=== PATIENT | female | born 1965 | race Caucasian/White ===

== ENCOUNTER → 2020-07-23 07:10 | Outpatient (CLI) | payer OTHER, SELFPAY ==
--- NOTE | 2020-07-23 | DI.MRI.S_ITS ---
PROCEDURE: MR LUMBAR SPINE WO CON INDICATIONS: Radiculopathy, lumbar region TECHNIQUE: Noncontrast sagittal T1 spin echo and T2 fast echo, sagittal STIR, axial T1 and T2 fast spin echo through the lumbar spine. In cases with scoliosis, additional coronal T2 fast spin echo may be performed. COMPARISON: [facility] [place], [place], XR LUMBAR SPINE WITH OLBIQUES PLUS FLEXION EXTENSION, 07/17/2020, 9:07. FINDINGS: Image quality: Excellent. Alignment and Curvature: 5 lumbar type vertebral bodies are present by plain film. Alignment is normal. Bone Marrow: Marrow is of normal overall signal. No acute vertebral body compression fractures. Mild reactive signal within the endplates adjacent to the L4-L5 intervertebral disc. Left L4-L5 hemilaminotomy. Spinal Cord: Conus medullaris terminates at the lower L1 level. Visualized cord demonstrates normal signal and size. Paraspinous Soft Tissues: No paravertebral masses. Moderate edema within the posterior subcutaneous fat. L1-L2: Normal appearance. L2-L3: Mild disc desiccation and diffuse disc bulge. Mild facet and ligamentum flavum hypertrophy. Mild epidural lipomatosis. Mild canal stenosis. No foraminal stenosis. L3-L4: Mild disc desiccation and diffuse disc bulge with superimposed small broad-based right posterolateral protrusion. Mild facet and ligamentum flavum hypertrophy. Mild epidural lipomatosis. Mild canal stenosis. Moderate right and mild left foraminal stenosis. L4-L5: Moderate disc desiccation. Mild disc height loss. Mild diffuse disc bulge with superimposed broad-based left posterolateral protrusion. Mild bilateral facet hypertrophy. No significant canal stenosis. Severe left and mild right foraminal stenosis. Left L4 nerve root compression. L5-S1: Mild bilateral facet hypertrophy. No significant canal, or foraminal stenosis. IMPRESSION: 1. Postsurgical sequelae at L4-L5 with no significant canal stenosis at that level. 2. Multilevel degenerative disc and facet disease, as well as ligamentum flavum hypertrophy and epidural lipomatosis. 3. Mild multilevel canal stenosis. 4. Multilevel foraminal stenoses, worst at L4-L5 on the left where there is associated intraforaminal nerve root compression. Recommend correlation with clinical symptoms to ascertain relevance of this finding. Dictated by: Miri Packer M.D. on 07/23/2020 at 8:34 Approved by: Miri Packer M.D. on 07/23/2020 at 8:37
== END ==
PROVIDERS: Referring Provider Physical Medicine & Rehabilitation; Visit Provider Physical Medicine & Rehabilitation
DX: M51.16 Intervertebral disc disorders with radiculopathy, lumbar region (principal); M48.061 Spinal stenosis, lumbar region without neurogenic claudication; E88.2 Lipomatosis, not elsewhere classified
CPT/HCPCS: 72148

== ENCOUNTER → 2020-09-03 07:32 | Outpatient (CLI) | payer OTHER, SELFPAY ==
[2020-09-03 08:46] LABS: Add Manual Diff / Slide Review NO; Basophils Absolute Auto 100 /uL (0-100); Basophils Percent Auto 0.9 % (0-2); Eosinophils Absolute Auto 200 /uL (0-450); Hematocrit 42.1 % (36-46); Lymphocytes Absolute Auto 3300 /uL (1100-4500); Lymphocytes Percent Auto 41.4 % (25-40); Mean Corpuscular HGB Conc 33.3 % (30-36); Mean Corpuscular Hemoglobin 28.2 PG (26-34); Mean Corpuscular Volume 84.6 fL (80-100); Monocytes Absolute Auto 600 /uL (0-900); Monocytes Percent Auto 7.9 % (3-14); Neutrophils Absolute Auto 3800 /uL (1500-7000); Neutrophils Percent Auto 47.8 % (50-75); Platelet Count 337 X10^3/uL (150-400); Red Blood Cell Count 4.97 X10^6/uL (4.0-5.2); Red Cell Distribution Width 13.8 % (11.6-14.8)
== END ==
PROVIDERS: Referring Provider Orthopaedic Surgery; Visit Provider Orthopaedic Surgery
DX: Z01.812 Encounter for preprocedural laboratory examination (principal)
CPT/HCPCS: 36415; 85025

== ENCOUNTER → 2020-09-08 08:18 | Outpatient (CLI) | payer OTHER, SELFPAY ==
[2020-09-08 09:30] LABS: COVID19 -Nasal RAPID Negative (Negative)
== END ==
PROVIDERS: Referring Provider Orthopaedic Surgery; Visit Provider Physician Assistant
DX: Z11.59 Encounter for screening for other viral diseases (principal)
CPT/HCPCS: 87635

== ENCOUNTER 2020-09-12 14:59 | Observation (INO) | payer OTHER, SELFPAY ==
[2020-09-05 07:34] VITALS: BMI 39.1
[2020-09-11] VITALS (15 sets, daily range): BP systolic 105–141; BP diastolic 48–83; PULSE 69–97; RESP 11–25; TEMP 35.9–36.8; O2SAT 92–99; BMI 39.9
--- NOTE | 2020-09-11 | DI.RAD.S_ITS ---
PROCEDURE: XR LUMBAR SPINE 2-3V INDICATIONS: L4-5 TLIF TECHNIQUE: 2 views of the lumbar spine were acquired. COMPARISON: [facility] [place], XR LUMBAR SPINE WITH OLBIQUES PLUS FLEXION EXTENSION, 07/17/2020, 9:07. FINDINGS: Bones: Postsurgical changes compatible with L4-L5 TLIF noted. Orthopedic hardware is intact. Soft tissues: Overlying bowel gas pattern is normal. No suspicious soft tissue calcifications. IMPRESSION: Expected postsurgical change for L4-L5 TLIF. Dictated by: Elyssa Wick MD, PhD on 09/11/2020 at 11:37 Approved by: Elyssa Wick MD, PhD on 09/11/2020 at 11:38
[2020-09-11] MEDS: LACTATED RINGERS 1,000 ML 42 ML IV ×2 (07:06→08:56)
--- NOTE | 2020-09-11 07:31 | PM.PREOP ---
Pre-operative Note COVID-19 COVID-19 status: Negative Result date/Date tested (Pos, Neg/Pending): 09/08/20 Interval Note History & Physical reviewed/Exam performed by Physician: Yes Changes to H&P: No
[2020-09-11] MEDS: SCOPOLAMINE 1 PATCH TOP (07:42)
[2020-09-11] MEDS: APREPITANT 40 MG CAPSULE PO (07:42)
[2020-09-11] MEDS: CLINDAMYCIN 900 MG/50 ML PIGGYBACK 50 MG IV (07:52)
[2020-09-11] MEDS: THROMBIN (RECOMBINANT) 5,000 UNIT VIAL 5000 UNIT TOP (08:37)
[2020-09-11] MEDS: SODIUM CHLORIDE 0.9% 1,000 ML, GENTAMICIN 80 MG IRR (08:37)
[2020-09-11] MEDS: VANCOMYCIN 1,000 MG VIAL 1000 MG TOP (08:38)
[2020-09-11] MEDS: BUPIVACAINE 0.25% (PF) 8 ML, fentaNYL 100 MCG INJ (08:39)
--- NOTE | 2020-09-11 08:53 | SUR.OPER ---
Prone on spine table, head in foam head support, padded chest and pelvic supports, gel pad at knees, lower legs supported by pillows; nipples, genitalia and toes free of pressure, arms secured on foam padded arm boards at <90 degrees abduction. Tape over blanket at thigh secured to table.
--- NOTE | 2020-09-11 10:34 | P.OP_ITS ---
Operative Date/Time/Diagnoses Date of procedure: 09/11/20 Time of procedure: 10:34 Pre-op diagnosis: Recurrent lumbar disc herniation with radiculopathy History of lumbar diskectomy Post-op diagnosis: same Procedure & Clinicians Procedure: L4-5 left-sided revision laminotomy and diskectomy Use of microscope L4-5 TLIF (posterior/posterior interbody fusion) with cage L4-5 screws Iliac crest bone graft Placement of epidural catheter Same procedure as scheduled: Yes Indications: [age] year old female with intractable pain from recurrent disc herniation. They had failed conservative management and requested operative intervention. Risks and benefits of surgery were discussed and appropriate consents were obtained. Surgeon: Gilberto Austin [employer] Operator: Emily Camargo Anesthesia Type: General Operative Notes Findings: None Closure Type: primary Specimen(s): none sent Prosthetic devices, grafts, tissues, transplants, or devices: NuVasive MAS Reline screws Globus Rise cage Applied: catheter Estimated Blood Loss (mL): 20 Procedure in detail: The patient was brought to the operating room and intubated on the table. A time-out was performed. They were then rolled over to the well- padded Sherman table in the prone position. Preoperative antibiotics were given. The back was prepped and draped in the standard sterile fashion. Using fluoroscopy, a 4 cm longitudinal incision was made to the well marked left of the midline. We used Bovie to come down to and split the lumbodorsal fascia. Using fluoroscopy and monitoring, we then percutaneously placed Jamshidi needles down the pedicles of L4 and L5 on the left side. These were changed out to guidewires and then we tapped and then placed the NuVasive MAS Reline screw shanks. We then opened up the retractors and used Bovie to clear up the posterolateral gutter as well as medially along the lamina also exposing her previous laminotomy with careful dissection. A bur was used to decorticate the transverse processes. We brought in the microscope. Using a combination of bur and Kerrison rongeurs, a revision left-sided laminotomy and diskectomy was performed. We used a curette to free up the scar tissue in the canal from the remaining lamina. We performed a facetectomy with an osteotome and we exposed the exiting L4 nerve root. Once this was freed up we were able to expose the disc underneath it. We also then started working medially along the dura and retracting the dura and L5 nerve root medially. We had to carefully dissect this from the scar tissue of her previous surgery and free it up from the disc. Once the disc was exposed he was cleared with bipolar. We then performed an annulotomy with a scalpel. The herniated fragments of the disc in the central canal as well as foramen were then removed. This was separate and distinct from the TLIF approach as we had performed a revision surgery with meticulous scar dissection which added an extra 1/2 hour to the surgery. We also had to free up the L4 and L5 scarred and nerve roots. We then began the TLIF prep. We cleared up the remainder of the foramen until we could easily retract the exiting nerve root as well as the dura medially. We performed a diskectomy using a combination of paddles, doron, pituitaries, and curettes. We distracted the disc using a paddle and locked the retractor in an open position. We then filled the disc space with Osteocel bone graft. We then placed the globus mehdi cage under fluoroscopy and then filled this in with more bone graft. The distraction on the retractor was released to compress down. This completed the posterior interbody fusion portion of the TLIF at 4 5. An epidural catheter was then prepped with 8 mL of 0.5% Marcaine (she had this listed as an unknown allergy but reports that she has actually been allergy tested and it does not react to Marcaine), and 100 mcg of fentanyl and placed in the spinal canal by carefully depressing the dura and advancing it 6 cm cephalad under the remaining lamina without resistance. We then placed the screw heads, mehdi, and locked down the set screws. The wound was copiously irrigated. A small stab incision was made over the PSIS. We used a Jamshidi needle to as pirate several mL of bone marrow from the pelvis. This was mixed with the remaining Osteocel and combined with all of the locally harvested bone graft and placed in the posterolateral gutter for the posterior fusion of the TLIF at L4- 5. The muscle fascia was closed. The epidural catheter was then injected without resistance and the catheter was pulled. We then went to the opposite side. Again using fluoroscopy, a 3 cm incision was made and Bovie was used to come down to split the fascia. Using neural monitoring and fluoroscopy, Jamshidi needles were advanced down the pedicles of L4 and L5 on the right side. These were switched over guidewires, tapped, and screws placed. We then placed a mehdi and locked the set screws on this side. The wound was irrigated. The fascia was closed. Vancomycin powder was placed in the wounds. The superficial and skin were closed. A sterile dressing was placed. The patient was then rolled over extubated and brought to recovery room without complications. Complications: none Post-operative Condition: stable Disposition: PACU Plan for aftercare: Outpatient with bed. Anticipate 2 days in the hospital. Up with PT
[2020-09-11] MEDS: fentaNYL 100 MCG/2 ML INJ IV (11:07)
[2020-09-11] MEDS: LACTATED RINGERS 1,000 ML 125 ML IV (12:27)
[2020-09-11] MEDS: OXYCODONE/ACETAMINOPHEN 5/325 TABLET 2 TAB PO ×3 (12:27→20:44)
[2020-09-11] MEDS: HYDROMORPHONE 0.5 MG INJ IV (12:33)
--- NOTE | 2020-09-11 13:48 | PT.IIE ---
Current Diagnoses Intervertebral disc disorders with radiculopathy, lumbar region (09/11/20) Other specified postprocedural states (09/11/20) Surgery Performed Operation Date: 09/11/20 07:45 Actual Procedures p L4-5 redo left discectomy & instrumented fusion w/bone graft(Left) - Gilberto Austin MD Surgical History (Last Updated 09/05/20 @ 08:35 by Nilsa Marmolejo, RN) H/O tubal ligation History of lumbar laminectomy History of surgery Hx of appendectomy Hx of arthroscopic knee surgery Hx of breast reduction, elective Hx of cholecystectomy Hx of elbow surgery Hx of LASIK Hx of removal of cyst Hx of shoulder surgery Hx of tonsillectomy S/P epidural steroid injection (08/07/20) Medical History (Last Updated 09/05/20 @ 08:20 by Nilsa Marmolejo RN) Bilateral plantar fasciitis GERD (gastroesophageal reflux disease) Kidney stone Migraines Sciatica Physical Therapy Inpatient Evaluation/Re-Eval M1 PT/OT-IP Prior Functional Status Start: 09/11/20 14:33 Freq: NEEDED Status: Active Protocol: Document 09/11/20 13:48 AB (Rec: 09/11/20 14:45 AB [id number]) Medical Review Prior Functional Status Medical History Reviewed Yes Communication able to make needs known Mobility and Gait pt stated that she is independent with all mobilities and ambulation without AD but uses a SPC for long distance ambulation Social History Household Members spouse,children Living Arrangements Mobile home Number of Floors (Floors) One Floor Number of Stairs To Enter/Railing? 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 PT-IP Current Condition Start: 09/11/20 14:33 Freq: NEEDED Status: Active Protocol: Document 09/11/20 13:48 AB (Rec: 09/11/20 14:45 AB [email or web address]) Physical Therapy Current Condition Current Condition Evaluation Date 09/11/20 Treatment Diagnosis s/p L4-5 TLIF; difficulty in walking Onset Date 09/11/20 Precautions Lumbar Precautions Log Roll,No Twisting,Limit Bending,Lifting Restriction of 10 lbs,Gait Belt above Incisional Area M3 PT-IP Subjective Start: 09/11/20 14:33 Freq: NEEDED Status: Active Protocol: Document 09/11/20 13:48 AB (Rec: 09/11/20 14:45 AB [email or web address]) Subjective Physical Therapy Visit Type Type Initial Evaluation Visit Start Time 13:48 Visit Stop Time 14:28 Total Visit Minutes 40 Number of ELECTRICAL PARTS RECONDITIONER Visits 0 Physical Therapy Visit Comments Patient Comments pt is agreeable to do PT Therapy Pain Assessment Pain When Pain Assessed At Rest Pain Present Pain Present Pain Reported Location lower back Intensity 4 Scale Used Numeric (0 - 10) Pain Management Techniques Apply Cold,Distraction, Modification of Treatment,Re- positioning,Timing of Activity with Medications M4 PT-IP Mobility and Gait Start: 09/11/20 14:33 Freq: NEEDED Status: Active Protocol: Document 09/11/20 13:48 AB (Rec: 09/11/20 14:45 [email or web address]) PT-Bed Mobility Assessment Rolling Type of Rolling Log Rolling Level of Assist Standby Assistance Supine to Sit Supine to Sit Standby Assistance,Head of Bed Elevated,Bedrails Sit to Supine Sit to Supine Standby Assistance,Head of Bed Elevated,Bedrails Scooting Scooting to Edge of Bed Standby Assistance PT-Transfer Assessment Sit to and From Stand Sit to and from Stand Minimal Assistance,1 Person Assistance,Use of Upper Extremities Equipment Transfer Assistive Device Gait Belt,Front Wheeled Walker Orthotic/Prosthetic Devices or Brace: No Comments Mobility Comments educated on back precautions. pt completed supine to sit log roll bed mobility SBA with use of headboard and rail to assist. pt stated that she has a side rail that she can reach at home to assist her with bed mobility. pt was able to sit on EOB SBA. scooted to EOB SBA and completed sit to stand min A and cues. pt was able to ambulate ~ 5 ft min A using FWW and requested to go back to bed. pt increase pain and slight dizziness. BP is stable: 136/75 supine to after standin/76 pt completed sit to supine SBA. positioned in bed. call light and table placed within reach . Gait Assessment Gait Gait Assistance Required: Minimum Assistance Distance (Feet) 5 Able to Maintain Weight Bearing Status Yes During Gait Assistive Devices Assistive Device Gait Belt,Front Wheeled Walker Gait Deviations General Gait Pattern Antalgic,Decreased Stride Length,Decreased Feet Clearance Factors Limiting Gait Function Factors Limiting Gait Function Decreased Activity Tolerance, Decreased Strength,Limited Range of Motion,Pain,Poor Balance,Poor Safety Awareness PT-Balance Assessment Sitting Balance and Reactions Static Sitting Balance Ability Good Dynamic Sitting Balance Ability Good Standing Balance and Reactions Static Standing Balance Ability Fair Dynamic Standing Balance Ability Fair Device Used FWW M5 PT-IP Objective Assessments Start: 09/11/20 14:33 Freq: NEEDED Status: Active Protocol: Document 09/11/20 13:48 AB (Rec: 09/11/20 14:45 AB [email or web address]) Orientation Orientation/Cognition Level of Alertness Alert Orientation Name,Age,Birthday,Month,Date, Year,Day of Week,Place, Situation Language Function Ability No Deficits Noted Safety Awareness Understands Safety Issues Memory Description No Deficits Noted Gross Range of Motion Lower Extremity ROM Assessment Within Functional Limits Strength Lower Extremity Strength Assessment Within Functional Limits Coordination Assessment Gross Coordination Gross Coordination WNL Sensation Assessment Sensation Gross Sensation WNL Muscle Tone Muscle Tone WNL Yes M6 PT-IP Treatment Start: 09/11/20 14:33 Freq: NEEDED Status: Active Protocol: Document 09/11/20 13:48 AB (Rec: 09/11/20 14:45 AB [email or web address]) Physical Therapy Treatment Education Education Provided Precautions,Weight Bearing Status,Post-Op Packet,Safety M7 PT-IP Assessment and Plan Start: 09/11/20 14:33 Freq: NEEDED Status: Active Protocol: Document 09/11/20 13:48 AB (Rec: 09/11/20 14:45 AB [email or web address]) PT Summary Assessment and Plan Potential Rehabilitation Potential Good Status of Condition at Evaluation Evolving Summary Impairments Pain,ROM,Strength,Balance,Bed Mobility,Transfers,Gait, Activity Tolerance Assessment Summary pt s/p L4-5 TLIF and just had surgery this morning. pt requiring min A for sit to stand and ambulation but was not able to tolerate much activity with c/o increarse pain and lightheadedness. pt plans to go home with spouse to assist her. pt stated that she will get a FWW. will continue to assess progress. will have to complete stair climbing training prior to d/c . Goals Bed Mobility Goal Independent Transfer Goal Independent,Front Wheeled Walker Gait Goal Independent,Front Wheel Walker Gait Distance 250 Other Goals improve ambulation without AD 100 ft SBA up/down 5 steps B rails SBA Days to Meet Goals 5 Frequency of Treatment Frequency Of Treatment Twice a Day Treatment Plan Physical Therapy Treatment Plan Bed Mobility Training,Transfer Training,Gait Training, Therapeutic Exercise,Balance Retraining,Post Op Education, Discharge Planning,Hot or Cold Pack,Neuromuscular Re-ed, Coordination Retraining,Manual Therapy Recommendations To Nursing Amount of Assist Needed 1 Person Assist Discharge Recommendations PT Discharge Recommendations Home with Assistance Equipment Needed for Home Before FWW Discharge Transportation Needs at Discharge Private Vehicle
--- NOTE | 2020-09-11 14:44 | PC.ADMIT ---
Addendum entered by Stacy Alvarado R.N. 09/11/20 14:44: POST-OP: LATE ENTRY: PATIENT ALERT AND ORIENTED, CONVERSANT SINCE ARRIVAL FROM RECOVERY. PAIN INITIALLY 7/10 TO LOW BACK AND ACROSS HIPS. GIVEN PERCOCET X2 AND 0.5 IV DILAUDID, AND ICE PACK W/ RELIEF TO 4/10. IVF INFUSING PER ORDERS. RIGHT WRIST PIV POSITIONAL. ATE LUNCH, NO NAUSEA. SCD'S APPLIED. CMS INTACT, DENIES NUMNBESS OR TINGLING. STRONG DORSIFLEXION AND PLANTARFLEXION. PHYSICAL THERAPY NOW IN W/ PATIENT. Original Note: [address] Admission Note: The patient,Rylee Cates,54 y/o, was given written information regarding hospital policies, unit procedures and contact persons. Patient's smoking status: Current some day smoker. Vital Signs - 8 hr 09/11/20 10:50 09/11/20 10:55 09/11/20 11:00 Temperature 98.0 F 96.7 F L 96.6 F L Pulse Rate 97 H 92 H 86 Respiratory Rate 25 H 20 16 Blood Pressure 136/82 114/48 L 125/78 Pulse Oximetry 97 94 92 09/11/20 11:05 09/11/20 11:20 09/11/20 11:35 Temperature 97.4 F L 96.8 F L 96.8 F L Pulse Rate 91 H 79 84 Respiratory Rate 22 11 L 20 Blood Pressure 141/81 H 118/64 118/71 Pulse Oximetry 97 98 97 09/11/20 11:45 Temperature 98.0 F Pulse Rate Respiratory Rate Blood Pressure 110/56 L Pulse Oximetry
--- NOTE | 2020-09-11 15:53 | OT.IP.EVAL ---
Current Diagnoses Intervertebral disc disorders with radiculopathy, lumbar region (09/11/20) Other specified postprocedural states (09/11/20) Surgery Performed Operation Date: 09/11/20 07:45 Actual Procedures p L4-5 redo left discectomy & instrumented fusion w/bone graft(Left) - Gilberto Austin MD Past Medical History (Last Updated 09/05/20 @ 08:20 by Nilsa Marmolejo, RN) Bilateral plantar fasciitis GERD (gastroesophageal reflux disease) Kidney stone Migraines Sciatica Surgical History (Last Updated 09/05/20 @ 08:35 by Nilsa Marmolejo RN) H/O tubal ligation History of lumbar laminectomy History of surgery Hx of appendectomy Hx of arthroscopic knee surgery Hx of breast reduction, elective Hx of cholecystectomy Hx of elbow surgery Hx of LASIK Hx of removal of cyst Hx of shoulder surgery Hx of tonsillectomy S/P epidural steroid injection (08/07/20) Occupational Therapy Inpatient Evaluation/Re-Eval M1 PT/OT-IP Prior Functional Status Start: 09/11/20 14:33 Freq: NEEDED Status: Active Protocol: Document 09/11/20 17:01 CGR (Rec: 09/11/20 17:18 CGR [email or web address]) Medical Review Prior Functional Status Medical History Reviewed Yes Communication able to make needs known Mobility and Gait pt stated that she is independent with all mobilities and ambulation without AD but uses a SPC for long distance ambulation Activities of Daily Living and IADL's Pt states she was IND in all ADLs. Social History Household Members spouse,children Living Arrangements Mobile home Number of Floors (Floors) One Floor Number of Stairs To Enter/Railing? 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 M2 OT-IP Current Condition Start: 09/11/20 17:01 Freq: Status: Active Protocol: Document 09/11/20 17:01 CGR (Rec: 09/11/20 17:18 CGR [email or web address]) Occupational Therapy Current Condition Current Condition Evaluation Date 09/11/20 Treatment Diagnosis L4-5 TLIF revision Diagnosis Onset Date 09/10/20 Post Operative Precautions Lumbar Precautions Log Roll,No Twisting,Limit Bending,Lifting Restriction of 10 lbs,Gait Belt above Incisional Area M3 OT- IP Subjective and Pain Start: 09/11/20 17:01 Freq: Status: Active Protocol: Document 09/11/20 17:01 CGR (Rec: 09/11/20 17:18 CGR [email or web address]) OT- Subjective Occupational Therapy Visit Type Type Initial Evaluation Visit Start Time 15:00 Visit Stop Time 15:53 Total Visit Minutes 53 Notes Pt's entered during the session. OT Pain Assessment Pain When Pain Assessed At Rest Pain Present Pain Present Pain Reported Location lower back Intensity 3 Scale Used Numeric (0 - 10) Management Techniques Distraction,Elevation M4 OT- IP ADL's Start: 09/11/20 17:01 Freq: Status: Active Protocol: Document 09/11/20 17:01 CGR (Rec: 09/11/20 17:18 CGR [email or web address]) OT [id number] Comments OT Self-Feeding Comments Not meal time. OT ADL-Grooming General Evaluation Grooming Ability Standby Assistance Areas Needing Assistance Face Washing Comments OT Grooming Comments Standing at sink OT ADL-Oral Care General Eval Oral Care Ability Standby Assistance Areas of Assistance Brushing Teeth Comments Oral Care Comments Standing at sink OT ADL-Dressing General Eval Lower Body Dressing Ability Total Assistance Areas Needing Assistance Socks Comments OT Dressing Comments sitting EOB OT ADL-Toileting General Evaluation Toileting Ability Standby Assistance Comments OT Toileting Comments simulated as pt currently has a george OT ADL-Bathing Comments OT Bathing Comments not performed M5 OT- IP IADL's Start: 09/11/20 17:01 Freq: Status: Active Protocol: Document 09/11/20 17:01 CGR (Rec: 09/11/20 17:18 CGR [email or web address]) OT-Instrumental Activities of Daily Living Deficits IADL Deficits Identified No Deficits Home Safety Awareness Awareness of Need for Assistance at Home Good Awareness Ability to Problem Solve Emergency Able to Problem Solve Situations Medication Management Medication Management No Deficits Identified Money Management Money Management No Deficits Identified Meal Preparation Meal Preparation No Deficits Identified [place] Se[place] Se[place] No Deficits Identified Driving Driving Comments Pt understands that she should not drive till approved by MD Raul Comer OT- IP Functional Cognition Start: 09/11/20 17:01 Freq: Status: Active Protocol: Document 09/11/20 17: CGR (Rec: 09/11/20 17:18 CGR [email or web address]) Cognitive Factors Limiting Selfcare Function Cognitive Ability Level of Alertness Alert Patient Orientation Name,Age,Birthday,Month,Date, Year,Day of Week,Place, Situation Attention Span Ability Capable of Focused Attention, Capable of Sustained Attention Ability to Follow Commands Able to Follow Multi-Step Commands Memory Description No Deficits Noted Safety Awareness No Deficits Noted Problem Solving Ability No deficits Noted OT- Vision and Hearing OT- Hearing Assessment OT- Hearing Assessment WFL OT- Vision Assessment Visual Acuity WFL Visual Attentiveness WFL Occular Pursuits WFL Visual Convergence WFL M7 OT- IP Mobility and Balance Start: 09/11/20 17:01 Freq: Status: Active Protocol: Document 09/11/20 17: CGR (Rec: 09/11/20 17:18 CGR [email or web address]) OT- Bed Mobility Assessment Rolling Type of Rolling Log Rolling Level of Assistance Standby Assistance Supine to Sit Supine to Sit Assist Standby Assistance Scooting Scooting to Edge of Bed Standby Assistance OT-Transfer Assessment Sit to and From Stand Sit to and from Stand Standby Assistance Transfers Transfer Ability Standby Assistance Technique Transfer Destination Bed,Chair,Toilet Transfer Technique Stand Step Pivot Devices Transfer Assistive Devices Gait Belt,Front Wheeled Walker Comments Mobility Comments Mobility around the room and to the sink for ADLs. OT- Gait Assessment Gait Gait Assistance Required: Standby Assistance Assistive Devices Assistive Device Gait Belt,Front Wheeled Walker OT- Balance Assessment Sitting Balance and Reactions Static Sitting Balance Ability Normal Dynamic Sitting Balance Ability Good M8 OT- IP Objective Assessments Start: 09/11/20 17:01 Freq: Status: Active Protocol: Document 09/11/20 17: CGR (Rec: 09/11/20 17:18 CGR [email or web address]) OT Gross Range of Motion Upper Extremity Range of Motion Assessment Within Functional Limits OT Strength Upper Extremity Strength Assessment Within Functional Limits Comments Strength Comments grossly 4+/5 OT- Coordination Assessment Upper Extremity Finger to Nose Test Within Functional Limits Finger Tapping Test Within Functional Limits OT-Muscle Tone Assessment Muscle Tone WNL No OT Sensation Assessment Edema Edema Absent M9 OT- IP Assessment and Plan Start: 09/11/20 17:01 Freq: Status: Active Protocol: Document 09/11/20 17:01 CGR (Rec: 09/11/20 17:18 CGR [email or web address]) OT Summary Assessment and Plan Potential Rehabilitation Potential Excellent Analytic Complexity at Evaluation Low Summary OT Impairments Pain,Balance,Functional Mobility,Self-Feeding,Grooming ,Dressing,Toileting,Bathing, Toilet Transfers,Activity Tolerance Progress Towards Goals Progressing Toward Goals Assessment Summary Pt presents as a low complexity evaluation s/p admit for L4-5 revision. Pt is mobilizing well with pain rated at 3/10 after being recently medicated. Pt is likley to progress quickly. Recommend shower and LB dressing at next session and d /c home with family when medically stable. Goals Grooming Goal Independent Dressing Goal Independent Toileting Goal Independent Bathing Goal Independent Toilet Transfer Goal Independent Shower Transfer Goal Independent Days to Meet Goals 2 Frequency of Treatment Frequency Of Treatment Once a Day Treatment Plan OT Treatment Plan ADL Training,Functional Mobility,Patient/Family Education,Discharge Planning Other Treatment Recommendations and Next shower and LB dressing. Treatment Focus Discharge Recommendations OT Discharge Recommendations Home with Assistance Home Equipment Needs walker Transportation Needs at Discharge Private Vehicle
--- NOTE | 2020-09-11 19:25 | PC.NURSE ---
Addendum entered by Lore Gonzalez R.N. 09/12/20 00:19: ER nor ICU nurse available to start IV. I notified Dr Camargo, she changed antibiotic to oral but told me if we are able to get another IV placed to refer back to IV antibiotic order. Patient reports good pain control with Percocet, Vistaril given at bedtime. Tolerating PO's, george with copious amount of clear dilute straw colored urine. Patient assisted with logrolling tonight. Drsgs remain CDI & CMS intact. Original Note: Evening note: Rylee said my IV went bad-I'm sure it's infiltrated, but the bubble went down a little. IV to R wrist removed, pressure drsg applied. Site bled, 2x2 saturated with sang drainage, patient elevated arm with me holding pressure on IV site, after few minutes I reinforced IV site with additional 4x4 folded & applied to site. I attempted IV restart to L wrist, good flash & could draw back blood but not advance cannula fully, when trying to advance with saline flush IV was no longer patent. 2 other RN's have tried starting IV for total of 6 unsuccessful attempts. I notified ER of need for assistance to restart IV. Patient reports good pain control after taking Percocet, sat up in recliner for meal. Assisted back to bed, positioned on her right side. Ice packs to her back. Gauze drsgs are CDI. She denies numbness or tingling to extremities. VS are stable. Spouse visiting at bedside.
[2020-09-11] MEDS: SENNOSIDES 8.6 MG TABLET 17.2 MG PO (20:44)
[2020-09-11] MEDS: PANTOPRAZOLE 20 MG TABLET PO (20:45)
[2020-09-11] MEDS: DOCUSATE 100 MG CAPSULE PO (20:45)
[2020-09-11] MEDS: CLINDAMYCIN 150 MG CAPSULE 300 MG PO (21:32)
[2020-09-12 00:05] VITALS: BP 120/56; PULSE 61; RESP 16; TEMP 36.8; O2SAT 98
[2020-09-12] MEDS: OXYCODONE/ACETAMINOPHEN 5/325 TABLET 2 TAB PO ×6 (00:26→23:32)
[2020-09-12] MEDS: hydrOXYzine pamoate 25 MG CAPSULE PO ×3 (00:27→18:40)
[2020-09-12 04:15] VITALS: BP 101/56; PULSE 71; RESP 16; TEMP 36.9; O2SAT 99
[2020-09-12] MEDS: CLINDAMYCIN 150 MG CAPSULE 300 MG PO (04:15)
[2020-09-12] MEDS: PANTOPRAZOLE 20 MG TABLET PO ×2 (05:53→21:29)
--- NOTE | 2020-09-12 07:21 | PM.PNPO.1 ---
Subjective Subjective Date Patient Seen: 09/12/20 Time Patient Seen: 07:21 Interval history: She is doing well. Her IV infiltrated yesterday and they have been unable to get a new IV since. She has been managing with oral pain medication. All the leg pain is resolved Exam Vital Signs (past 8 hours): - 09/12/20 00:05 09/12/20 04:15 Temperature 98.3 F 98.4 F Pulse Rate 61 71 Respiratory Rate 16 16 Blood Pressure 120/56 L 101/56 L Pulse Oximetry 98 99 Oxygen Delivery Method Room Air Oxygen Flow Rate 0 Const Orientation: alert and oriented x3 Back/Spine/Pelvis Other: CDI. 5/5 motor both lower extremities. Objective Labs Result Diagrams: 09/12/20 06:42 Assessment & Plan Post-op Postoperative Procedures: Procedures Operation Date: 09/11/20 07:45 Actual Procedures Side Surgeon p L4-5 redo left discectomy & instrumented fusion w/bone graft Left Gilberto Austin MD She is doing very well. Mobilize with physical therapy. Anticipate discharge home tomorrow. Quality VTE Deep Vein Thrombosis/Pulmonary Embolism Present on Admission: No
[2020-09-12 07:26] VITALS: BP 101/65; PULSE 65; RESP 14; TEMP 36.7; O2SAT 97
[2020-09-12 08:02] LABS: Hematocrit 36.8 % (36-46); Hemoglobin 12.1 g/dL (12.0-16.0)
[2020-09-12] MEDS: LORATADINE 10 MG TABLET PO (08:17)
[2020-09-12] MEDS: DOCUSATE 100 MG CAPSULE PO ×2 (08:17→21:29)
[2020-09-12] MEDS: FLUCONAZOLE 150 MG TABLET PO (08:18)
--- NOTE | 2020-09-12 09:46 | PT.IPTN ---
Addendum entered and electronically signed by Loni Varghese PT 09/12/20 13:47: This is to certify that I supervised this PT session and reviewed this documentation. Original Note: Current Diagnoses Intervertebral disc disorders with radiculopathy, lumbar region (09/11/20) Other specified postprocedural states (09/11/20) Surgery Performed Operation Date: 09/11/20 07:45 Actual Procedures p L4-5 redo left discectomy & instrumented fusion w/bone graft(Left) - Gilberto Austin MD Physical Therapy Treatment Note M2 PT-IP Current Condition Start: 09/11/20 14:33 Freq: NEEDED Status: Active Protocol: Document 09/11/20 13:48 AB (Rec: 09/11/20 14:45 AB [id number]) Physical Therapy Current Condition Current Condition Evaluation Date 09/11/20 Treatment Diagnosis s/p L4-5 TLIF; difficulty in walking Onset Date 09/11/20 Precautions Lumbar Precautions Log Roll,No Twisting,Limit Bending,Lifting Restriction of 10 lbs,Gait Belt above Incisional Area M3 PT-IP Subjective Start: 09/11/20 14:33 Freq: NEEDED Status: Active Protocol: Document 09/12/20 09:46 (Rec: 09/12/20 12:19 [id number]) Subjective Physical Therapy Visit Type Type Treatment Note Visit Start Time 09:46 Visit Stop Time 10:01 Total Visit Minutes 15 Notes AMY Lutz led tx under direct supervision of Loni PT for the entire session. Number of PRINCIPAL EXAMINER Visits 1 Physical Therapy Visit Comments Patient Comments pt is agreeable to do PT. Pt c /o of 6/10 pn at rest, w/ inrease 7/10 during amb. Therapy Pain Assessment Pain When Pain Assessed At Rest Pain Present Pain Present Pain Reported Location lower back Intensity 6 Scale Used Numeric (0 - 10) Pain Behaviors Facial Grimacing,Moaning Pain Management Techniques Apply Cold,Re-positioning M4 PT-IP Mobility and Gait Start: 09/11/20 14:33 Freq: NEEDED Status: Active Protocol: Document 09/12/20 09:46 (Rec: 09/12/20 12:19 [id number]) PT-Transfer Assessment Sit to and From Stand Sit to and from Stand Contact Guard Assistance,1 Person Assistance,Use of Upper Extremities Equipment Transfer Assistive Device Gait Belt,Front Wheeled Walker Orthotic/Prosthetic Devices or Brace: No Comments Mobility Comments Reviewed back precautions. Pt scooted to EOC SBA. completed sit to stand from chair SBA w/ FWW. Pt amb ~60 in the room w / FWW CGA. D/t increase in pain pt wanted to sit in chair . stand to sit SBA w/ FWW. Pt left with call light and all needs within reach. Gait Assessment Gait Gait Assistance Required: Contact Guard Assist,1 Person Assist Distance (Feet) 60 Able to Maintain Weight Bearing Status Yes During Gait Assistive Devices Assistive Device Gait Belt,Front Wheeled Walker Gait Deviations General Gait Pattern Antalgic,Decreased Stride Length,Decreased Feet Clearance Factors Limiting Gait Function Factors Limiting Gait Function Decreased Activity Tolerance, Decreased Strength,Limited Range of Motion,Pain,Poor Balance,Poor Safety Awareness Comments Gait Comments see mobility section. PT-Balance Assessment Sitting Balance and Reactions Static Sitting Balance Ability Good Dynamic Sitting Balance Ability Good Standing Balance and Reactions Static Standing Balance Ability Fair Dynamic Standing Balance Ability Fair Device Used FWW M5 PT-IP Objective Assessments Start: 09/11/20 14:33 Freq: NEEDED Status: Active Protocol: Document 09/11/20 13:48 AB (Rec: 09/11/20 14:45 AB [id number]) Orientation Orientation/Cognition Level of Alertness Alert Orientation Name,Age,Birthday,Month,Date, Year,Day of Week,Place, Situation Language Function Ability No Deficits Noted Safety Awareness Understands Safety Issues Memory Description No Deficits Noted Gross Range of Motion Lower Extremity ROM Assessment Within Functional Limits Strength Lower Extremity Strength Assessment Within Functional Limits Coordination Assessment Gross Coordination Gross Coordination WNL Sensation Assessment Sensation Gross Sensation WNL Muscle Tone Muscle Tone WNL Yes M6 PT-IP Treatment Start: 09/11/20 14:33 Freq: NEEDED Status: Active Protocol: Document 09/11/20 13:48 AB (Rec: 09/11/20 14:45 AB [id number]) Physical Therapy Treatment Education Education Provided Precautions,Weight Bearing Status,Post-Op Packet,Safety M7 PT-IP Assessment and Plan Start: 09/11/20 14:33 Freq: NEEDED Status: Active Protocol: Document 09/12/20 09:46 (Rec: 09/12/20 12:19 [id number]) PT Summary Assessment and Plan Potential Rehabilitation Potential Good Status of Condition at Evaluation Evolving Summary Impairments Pain,ROM,Strength,Balance,Bed Mobility,Transfers,Gait, Activity Tolerance Progress Towards Goals Slow Progress due to Pain,Slow Progress due to Activity Tolerance Assessment Summary Pt SBA for sit<> stand and CGA for amb. Cued pt to use armrests and not FWW to stand up. Pt amb ~60 in room CGA w/ FWW. During amb pt demonstrated a decreased stride length and foot clearance. Pts amb distance has increased since previous tx, but will benefit from further therapy to improve strength and mobility. Upon discharge PT is recommending pt going home with assistance and caregiver training. Goals Bed Mobility Goal Independent Transfer Goal Independent,Front Wheeled Walker Gait Goal Independent,Front Wheel Walker Gait Distance 250 Other Goals improve ambulation without AD 100 ft SBA up/down 5 steps B rails SBA Days to Meet Goals 5 Frequency of Treatment Frequency Of Treatment Twice a Day Treatment Plan Physical Therapy Treatment Plan Bed Mobility Training,Transfer Training,Gait Training, Therapeutic Exercise,Balance Retraining,Post Op Education, Discharge Planning,Hot or Cold Pack,Neuromuscular Re-ed, Coordination Retraining,Manual Therapy Other Recommendations and Next Treatment increase amb distance and Focus stairs if able. Recommendations To Nursing Amount of Assist Needed 1 Person Assist Discharge Recommendations PT Discharge Recommendations Home with Assistance Equipment Needed for Home Before FWW Discharge Transportation Needs at Discharge Private Vehicle
--- NOTE | 2020-09-12 10:44 | OT.IP.TRT ---
Current Diagnoses Intervertebral disc disorders with radiculopathy, lumbar region (09/11/20) Other specified postprocedural states (09/11/20) Surgery Performed Operation Date: 09/11/20 07:45 Actual Procedures p L4-5 redo left discectomy & instrumented fusion w/bone graft(Left) - Gilberto Austin MD Occupational Therapy Treatment Note M2 OT-IP Current Condition Start: 09/11/20 17:01 Freq: Status: Active Protocol: Document 09/11/20 17:01 CGR (Rec: 09/11/20 17:18 CGR [email or web address]) Occupational Therapy Current Condition Current Condition Evaluation Date 09/11/20 Treatment Diagnosis L4-5 TLIF revision Diagnosis Onset Date 09/10/20 Post Operative Precautions Lumbar Precautions Log Roll,No Twisting,Limit Bending,Lifting Restriction of 10 lbs,Gait Belt above Incisional Area M3 OT- IP Subjective and Pain Start: 09/11/20 17:01 Freq: Status: Active Protocol: Document 09/12/20 10:20 CCC (Rec: 09/12/20 11:16 [facility] [email or web address]) OT- Subjective Occupational Therapy Visit Type Type Treatment Note Visit Start Time 10:20 Visit Stop Time 10:44 Total Visit Minutes 24 Occupational Therapy Visit Comments Patient Comments Pt not wanting to shower today but willing to try to use the bathroom and wash up at the sink. Patient/Caregiver Goals To go home when medically stable. OT Pain Assessment Pain When Pain Assessed At Rest Pain Present Pain Present Pain Reported Location lower back Intensity 6 Scale Used Numeric (0 - 10) M4 OT- IP ADL's Start: 09/11/20 17:01 Freq: Status: Active Protocol: Document 09/12/20 10:20 CCC (Rec: 09/12/20 11:16 [facility] [email or web address]) OT GKA-Yupp-Dadsoek General Evaluation Self-Feeding Ability Independent OT ADL-Grooming General Evaluation Grooming Ability Standby Assistance Areas Needing Assistance Retrieving/Set-up of Grooming Items Comments OT Grooming Comments Standing at sink OT ADL-Oral Care General Eval Oral Care Ability Standby Assistance Areas of Assistance Brushing Teeth Comments Oral Care Comments Standing at sink, pt able to follow back precautions to lean over at her hips to spit. Pt heavily leaning on the counter for her balance at times. OT ADL-Dressing General Eval Lower Body Dressing Ability Total Assistance Areas Needing Assistance Socks Comments OT Dressing Comments Pt not wanting to practice LB dressing at this time as feeling overwhelmed, nursing aware. OT ADL-Toileting General Evaluation Toileting Ability Standby Assistance Comments OT Toileting Comments Pt able to wipe appropriately after urination. Suggested pt obtain toilet paper aid or have her assist. Pt states that she will just manage by her prior techniques to leaning forwards to wipe from the front after bowel movement. Pointed out to the pt that it may be too much bending, pt not wanting to try at this time to show therapist whether her way would be able to follow her back precautions appropriately . OT ADL-Bathing Comments OT Bathing Comments Pt states pending how she feels may want to try to shower tomorrow. M5 OT- IP IADL's Start: 09/11/20 17:01 Freq: Status: Active Protocol: Document 09/11/20 17:01 CGR (Rec: 09/11/20 17:18 CGR [email or web address]) OT-Instrumental Activities of Daily Living Deficits IADL Deficits Identified No Deficits Home Safety Awareness Awareness of Need for Assistance at Home Good Awareness Ability to Problem Solve Emergency Able to Problem Solve Situations Medication Management Medication Management No Deficits Identified Money Management Money Management No Deficits Identified Meal Preparation Meal Preparation No Deficits Identified Gate Tender Gate Tender No Deficits Identified Driving Driving Comments Pt understands that she should not drive till approved by . M6 OT- IP Functional Cognition Start: 09/11/20 17:01 Freq: Status: Active Protocol: Document 09/12/20 10:20 [facility] (Rec: 09/12/20 11:16 [facility] [email or web address]) Cognitive Factors Limiting Selfcare Function Cognitive Comments Cognitive Assessment Comments Mainly needing cues for to incorporate back precautions for all needs. M7 OT- IP Mobility and Balance Start: 09/11/20 17:01 Freq: Status: Active Protocol: Document 09/12/20 10:20 [facility] (Rec: 09/12/20 11:16 [facility] [email or web address]) OT- Bed Mobility Assessment Rolling Type of Rolling Log Rolling Level of Assistance Standby Assistance Sit to Supine Sit to Supine Assist Standby Assistance OT-Transfer Assessment Sit to and From Stand Sit to and from Stand Standby Assistance Transfers Transfer Ability Standby Assistance Technique Transfer Destination Bed,Chair,Toilet Transfer Technique Stand Step Pivot Devices Transfer Assistive Devices Gait Belt,Front Wheeled Walker Comments Mobility Comments Pt heavily relies on her arms to help come to stand. OT- Gait Assessment Gait Gait Assistance Required: Standby Assistance Assistive Devices Assistive Device Gait Belt,Front Wheeled Walker OT- Balance Assessment Sitting Balance and Reactions Static Sitting Balance Ability Normal Dynamic Sitting Balance Ability Good M8 OT- IP Objective Assessments Start: 09/11/20 17:01 Freq: Status: Active Protocol: Document 09/11/20 17:01 CGR (Rec: 09/11/20 17:18 CGR [email or web address]) OT Gross Range of Motion Upper Extremity Range of Motion Assessment Within Functional Limits OT Strength Upper Extremity Strength Assessment Within Functional Limits Comments Strength Comments grossly 4+/5 OT- Coordination Assessment Upper Extremity Finger to Nose Test Within Functional Limits Finger Tapping Test Within Functional Limits OT-Muscle Tone Assessment Muscle Tone WNL No OT Sensation Assessment Edema Edema Absent M9 OT- IP Assessment and Plan Start: 09/11/20 17:01 Freq: Status: Active Protocol: Document 09/12/20 10:20 [facility] (Rec: 09/12/20 11:16 CCC [email or web address]) OT Summary Assessment and Plan Potential Rehabilitation Potential Good Analytic Complexity at Evaluation Low Summary OT Impairments Pain,Balance,Functional Mobility,Self-Feeding,Grooming ,Dressing,Toileting,Bathing, Toilet Transfers,Activity Tolerance Progress Towards Goals Progressing Toward Goals Assessment Summary Pt moving well with transfer and mobility and not wanting to shower at this time. Pt states feeling overwhelmed and wanting to wait on doing LB dressing needs today. Pt to work on LB dressing and shower tomorrow for OT needs if pt willing. Pt looking to go home with assist form family when medically stable. Goals Grooming Goal Independent Dressing Goal Independent Toileting Goal Independent Bathing Goal Independent Toilet Transfer Goal Independent Shower Transfer Goal Independent Days to Meet Goals 3 Frequency of Treatment Frequency Of Treatment Once a Day Treatment Plan OT Treatment Plan ADL Training,Functional Mobility,Patient/Family Education,Discharge Planning Other Treatment Recommendations and Next shower and LB dressing. Treatment Focus Discharge Recommendations OT Discharge Recommendations Home with Assistance Home Equipment Needs FWW Transportation Needs at Discharge Private Vehicle
[2020-09-12 11:06] VITALS: BP 108/54; PULSE 74; RESP 15; TEMP 36.7; O2SAT 96
--- NOTE | 2020-09-12 11:58 | CM.IDA ---
Initial DCP Assessment Note Patient is a 54 yo female, resident of [place]. Patient is POD#[address] Austin PCP: Zay Balderas [place]ayer: [place] Reviewed chart. Met w/patient to introduce role. Patient states this isn't my first rodeo (w/back) and explains she plans to DC home w/assist from her spouse and adult son Devante. 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 Patient states she has saved enough for an absence from work of approx one month. 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 Will follow closely in case DC needs or concerns arise. JONAH Mcgowan Discharge Planning/Care Management CM Discharge Assessment Start: 09/12/20 11:56 Freq: Status: Active Protocol: Document 09/12/20 11:56 VERN (Rec: 09/12/20 11:58 VERN [id number]) Discharge Planning Assessment Assigned Snagger JONAH Torres DPOA/Assigned Designee Name Doyle Cates, spouse Devante Antunez, son Contact Information Doyle: [phone] Devante: [phone] Advance Directives? No History Provided By Patient Prior Living Arrangements Mobile home Household Members spouse,children Type of transporation used prior to Drives own vehicle admit Independent with ADL's Yes Is patient alert and oriented? Yes Barriers to Discharge No Comment At this time, POD#1 Discharge Plan Home Transportation Arrangement Family Referrals Initiated None needed Additional Comment At this time
--- NOTE | 2020-09-12 14:20 | PT.IPTN ---
Addendum entered and electronically signed by Loni Varghese PT 09/12/20 17:09: I certify that I have reviewed this documentation and is in direct supervision with this pt's care. Original Note: Current Diagnoses Intervertebral disc disorders with radiculopathy, lumbar region (09/12/20) Other specified postprocedural states (09/12/20) Surgery Performed Operation Date: 09/11/20 07:45 Actual Procedures p L4-5 redo left discectomy & instrumented fusion w/bone graft(Left) - Gilberto Austin MD Physical Therapy Treatment Note M2 PT-IP Current Condition Start: 09/11/20 14:33 Freq: NEEDED Status: Active Protocol: Document 09/11/20 13:48 AB (Rec: 09/11/20 14:45 AB [id number]) Physical Therapy Current Condition Current Condition Evaluation Date 09/11/20 Treatment Diagnosis s/p L4-5 TLIF; difficulty in walking Onset Date 09/11/20 Precautions Lumbar Precautions Log Roll,No Twisting,Limit Bending,Lifting Restriction of 10 lbs,Gait Belt above Incisional Area M3 PT-IP Subjective Start: 09/11/20 14:33 Freq: NEEDED Status: Active Protocol: Document 09/12/20 14:20 (Rec: 09/12/20 17:06 [id number]) Subjective Physical Therapy Visit Type Type Treatment Note Visit Start Time 14:20 Visit Stop Time 14:55 Total Visit Minutes 35 Notes AMY Lutz led tx under direct supervision of Loni PT for the entire session. Number of MEDICAL SECRETARY RECEPTIONIST Visits 2 Physical Therapy Visit Comments Patient Comments pt is agreeable to do PT. Therapy Pain Assessment Pain When Pain Assessed At Rest Pain Present Pain Present Pain Reported Location lower back Intensity 5 Scale Used Numeric (0 - 10) Pain Behaviors Facial Grimacing,Moaning Pain Management Techniques Apply Cold,Distraction,Re- positioning,Timing of Activity with Medications M4 PT-IP Mobility and Gait Start: 09/11/20 14:33 Freq: NEEDED Status: Active Protocol: Document 09/12/20 14:20 (Rec: 09/12/20 17:06 [id number]) PT-Bed Mobility Assessment Rolling Type of Rolling Log Rolling,Roll to Right Level of Assist Standby Assistance Supine to Sit Supine to Sit Standby Assistance,Head of Bed Elevated,Bedrails Sit to Supine Sit to Supine Standby Assistance,Head of Bed Elevated,Bedrails Scooting Scooting to Edge of Bed Standby Assistance PT-Transfer Assessment Sit to and From Stand Sit to and from Stand Contact Guard Assistance,1 Person Assistance,Use of Upper Extremities Equipment Transfer Assistive Device Gait Belt,Front Wheeled Walker Orthotic/Prosthetic Devices or Brace: No Transfers Transfer Destination Toilet Transfer Technique pt amb w/ FWW Transfer Ability Level of Assist Standby Assistance,1 Person Assistance Comments Mobility Comments Pt in bed upon arrival. Went over plan w/ pt, she was experiencing a lot of pain and appeared reluctant to proceed w/ tx. Pt eventaully agreed to get up. With HOB elevated pt log rolled to R SBA while using bed rail to assist. Supine to sit and scooting to EOB SBA. Pt required extra time to perform bed mobility d /t increase in pain. Sit to stand CGA w/ FWW. Cued pt to push off on the bed and not walker to stand. Pt amb to bathroom CGA w/ FWW. Sat down SBA w/o the use of the grab bar. After pt stood SBA w/ FWW and was able to perform pericare w/o assistance. Washed hands at sink while leaning against counter SBA. Pt amb ~100' in hallway CGA at first for safety and finished SBA w/ FWW w/o rest breaks. Then pt amb 3 stairs w/ bilateral rails ascend/descend x1 CGA w/ step to step. Pt amb ~75' SBA w/ FWW to room sat on window bench SBA w/ cues to reach back for bench. Sit to stand from bench SBA. Pt requested to go back to bed . Sit to supine SBA and pt left in R sidelying as requested. Positioned pt for proper alignment and left w/ call light and all needs within reach. Gait Assessment Gait Gait Assistance Required: Standby Assistance,Contact Guard Assist,1 Person Assist Distance (Feet) 100 Able to Maintain Weight Bearing Status Yes During Gait Assistive Devices Assistive Device Gait Belt,Front Wheeled Walker Orthotic/Prosthetic Devices or Brace: No Gait Deviations General Gait Pattern Antalgic,Decreased Stride Length,Decreased Feet Clearance Factors Limiting Gait Function Factors Limiting Gait Function Decreased Activity Tolerance, Decreased Strength,Limited Range of Motion,Pain,Poor Balance,Poor Safety Awareness Comments Gait Comments see mobility section. Stair Climbing Assessment Evaluation Level of Assist On Stairs Contact Guard Assistance,1 Person Assistance Devices Stair Climbing Assistive Devices Left Railing,Right Railing Technique/Endurance Stair Climbing Direction Ascend and Descend Stair Climbing Technique Step to Step Number of Steps Climbed 3 Stair Climbing Set # Repetitions (reps) 1 Comments Stair Climbing Comments See mobility section. PT-Balance Assessment Sitting Balance and Reactions Static Sitting Balance Ability Good Dynamic Sitting Balance Ability Good Standing Balance and Reactions Static Standing Balance Ability Fair Dynamic Standing Balance Ability Fair Device Used FWW M5 PT-IP Objective Assessments Start: 09/11/20 14:33 Freq: NEEDED Status: Active Protocol: Document 09/11/20 13:48 AB (Rec: 09/11/20 14:45 AB [id number]) Orientation Orientation/Cognition Level of Alertness Alert Orientation Name,Age,Birthday,Month,Date, Year,Day of Week,Place, Situation Language Function Ability No Deficits Noted Safety Awareness Understands Safety Issues Memory Description No Deficits Noted Gross Range of Motion Lower Extremity ROM Assessment Within Functional Limits Strength Lower Extremity Strength Assessment Within Functional Limits Coordination Assessment Gross Coordination Gross Coordination WNL Sensation Assessment Sensation Gross Sensation WNL Muscle Tone Muscle Tone WNL Yes M6 PT-IP Treatment Start: 09/11/20 14:33 Freq: NEEDED Status: Active Protocol: Document 09/11/20 13:48 AB (Rec: 09/11/20 14:45 AB [id number]) Physical Therapy Treatment Education Education Provided Precautions,Weight Bearing Status,Post-Op Packet,Safety M7 PT-IP Assessment and Plan Start: 09/11/20 14:33 Freq: NEEDED Status: Active Protocol: Document 09/12/20 14:20 (Rec: 09/12/20 17:06 [id number]) PT Summary Assessment and Plan Potential Rehabilitation Potential Good Summary Impairments Pain,ROM,Strength,Balance,Bed Mobility,Transfers,Gait, Activity Tolerance Progress Towards Goals Progressing Toward Goals,Slow Progress due to Pain,Slow Progress due to Activity Tolerance Assessment Summary Pt SBA for bed mobility, but pt completes log roll w/ HOB elevated and bed rails for assistance. Cued pt to push off from bed and not pull on walker to stand. Pt limited d/ t increase in pain, but pt able to amb ~100' SBA w/ FWW demonstrating step through gait. Pt amb 3 stairs CGA ascend/descend using bilateral rails for assistance w/ step to pattern. Pt amb distance increased and she was able to complete stairs. Upon discharge PT recommends home w / assistance and caregiver training if appropriate. Pts was able to acquire a walker for use once discharged . Goals Bed Mobility Goal Independent Transfer Goal Independent,Front Wheeled Walker Gait Goal Independent,Front Wheel Walker Gait Distance 250 Other Goals improve ambulation without AD 100 ft SBA up/down 5 steps B rails SBA Days to Meet Goals 5 Frequency of Treatment Frequency Of Treatment Twice a Day Treatment Plan Physical Therapy Treatment Plan Bed Mobility Training,Transfer Training,Gait Training, Therapeutic Exercise,Balance Retraining,Post Op Education, Discharge Planning,Hot or Cold Pack,Neuromuscular Re-ed, Coordination Retraining,Manual Therapy Other Recommendations and Next Treatment increase amb distance and Focus stairs. Recommendations To Nursing Amount of Assist Needed 1 Person Assist Discharge Recommendations PT Discharge Recommendations Home with Assistance Equipment Needed for Home Before FWW Discharge Transportation Needs at Discharge Private Vehicle
[2020-09-12 15:25] VITALS: BP 112/58; PULSE 77; RESP 18; TEMP 36.6; O2SAT 99
[2020-09-12 19:59] VITALS: BP 140/62; PULSE 72; RESP 18; TEMP 36.6
[2020-09-12] MEDS: SENNOSIDES 8.6 MG TABLET 17.2 MG PO (21:29)
[2020-09-13] VITALS: BP 107/55; PULSE 70; RESP 16; TEMP 36.8; O2SAT 98
[2020-09-13 06:04] VITALS: BP 113/55; PULSE 81; RESP 16; TEMP 37.2; O2SAT 100
[2020-09-13] MEDS: OXYCODONE/ACETAMINOPHEN 5/325 TABLET 2 TAB PO ×4 (06:42→20:59)
--- NOTE | 2020-09-13 07:18 | PM.PNPO.1 ---
Subjective Subjective Date Patient Seen: 09/13/20 Time Patient Seen: 07:18 Interval history: She is slowly moving with physical therapy. Still having trouble with spasms across the back. Leg feels fine. Exam Vital Signs (past 8 hours): - 09/13/20 00:00 09/13/20 06:04 Temperature 98.3 F 98.9 F Pulse Rate 70 81 Respiratory Rate 16 16 Blood Pressure 107/55 L 113/55 L Pulse Oximetry 98 100 Oxygen Delivery Method Room Air Oxygen Flow Rate 0 Const Orientation: alert and oriented x3 Back/Spine/Pelvis Other: CDI. 5/5 motor both lower extremities. Objective Labs Result Diagrams: 09/12/20 06:42 Labs: Laboratory Results - last 24 hr 09/12/20 06:42 Hgb 12.1 Hct 36.8 Assessment & Plan Post-op Postoperative Procedures: Procedures Operation Date: 09/11/20 07:45 Actual Procedures Side Surgeon p L4-5 redo left discectomy & instrumented fusion w/bone graft Left Gilberto Austin MD She still mobilizing slowly. Anticipate probably 1 more day in the hospital prior to discharge home. Quality VTE Deep Vein Thrombosis/Pulmonary Embolism Present on Admission: No
[2020-09-13 07:41] VITALS: BP 113/57; PULSE 83; RESP 16; TEMP 36.7; O2SAT 97
[2020-09-13] MEDS: DOCUSATE 100 MG CAPSULE PO ×2 (08:25→20:59)
[2020-09-13] MEDS: LORATADINE 10 MG TABLET PO (08:25)
[2020-09-13] MEDS: PANTOPRAZOLE 20 MG TABLET PO ×2 (08:25→20:59)
--- NOTE | 2020-09-13 08:54 | PT.IPTN ---
Current Diagnoses Intervertebral disc disorders with radiculopathy, lumbar region (09/12/20) Other specified postprocedural states (09/12/20) Surgery Performed Operation Date: 09/11/20 07:45 Actual Procedures p L4-5 redo left discectomy & instrumented fusion w/bone graft(Left) - Gilberto Austin MD Physical Therapy Treatment Note M2 PT-IP Current Condition Start: 09/11/20 14:33 Freq: NEEDED Status: Active Protocol: Document 09/11/20 13:48 AB (Rec: 09/11/20 14:45 AB [id number]) Physical Therapy Current Condition Current Condition Evaluation Date 09/11/20 Treatment Diagnosis s/p L4-5 TLIF; difficulty in walking Onset Date 09/11/20 Precautions Lumbar Precautions Log Roll,No Twisting,Limit Bending,Lifting Restriction of 10 lbs,Gait Belt above Incisional Area M3 PT-IP Subjective Start: 09/11/20 14:33 Freq: NEEDED Status: Active Protocol: Document 09/13/20 08:54 AB (Rec: 09/13/20 11:50 AB [id number]) Subjective Physical Therapy Visit Type Type Treatment Note Visit Start Time 08:54 Visit Stop Time 09:20 Total Visit Minutes 26 Number of REDUCING MACHINE OPERATOR Visits 0 Physical Therapy Visit Comments Patient Comments pt agreed to do PT but stated that her ears a plugged and will see what she can do; stated that her will drive her crazy when she goes home Therapy Pain Assessment Pain When Pain Assessed At Rest Pain Present Pain Present Pain Reported Location lower back Scale Used pain scale not stated Pain Management Techniques Apply Cold,Re-positioning, Timing of Activity with Medications M4 PT-IP Mobility and Gait Start: 09/11/20 14:33 Freq: NEEDED Status: Active Protocol: Document 09/13/20 08:54 AB (Rec: 09/13/20 11:50 AB [id number]) PT-Bed Mobility Assessment Sit to Supine Sit to Supine Standby Assistance,Head of Bed Elevated,Bedrails PT-Transfer Assessment Sit to and From Stand Sit to and from Stand Standby Assistance,Contact Guard Assistance,Use of Upper Extremities Equipment Transfer Assistive Device Gait Belt,Front Wheeled Walker Orthotic/Prosthetic Devices or Brace: No Transfers Transfer Destination Bed Transfer Technique ambulated using FWW Transfer Ability Level of Assist Standby Assistance Comments Mobility Comments pt sitting on chair. agreed to do PT but c/o pain and her ears being plugged up and stated that she will see what she can do since her ears are bothering her. also stated that she needs time in between therapies to rest since she knows what she feels and does not to push it. completed sit to stand from the chair SBA to CGA with initial standing. pt required ~ 8 min to get to standing position with 2 attempts to standing and rest breaks in between. pt ambulated ~ 120 ft using FWW in the hallway SBA. ambulated back to the room and requested to go back to bed. completed sit to supine SBA with use of bedrails and pt adjusted HOB up prior to laying down. positioned in bed. call light and table placed within reach . informed pt regarding caregiver training and pt stated that she thinks she is ok and training is not needed. also stated that her spouse will drive her crazy when she goes home. pt's personal FWW in room and adjusted. Gait Assessment Gait Gait Assistance Required: Standby Assistance Distance (Feet) 120 Able to Maintain Weight Bearing Status Yes During Gait Assistive Devices Assistive Device Gait Belt,Front Wheeled Walker Orthotic/Prosthetic Devices or Brace: No Gait Deviations General Gait Pattern Decreased Stride Length, Decreased Feet Clearance Factors Limiting Gait Function Factors Limiting Gait Function Decreased Activity Tolerance, Decreased Strength,Limited Range of Motion,Pain,Poor Balance,Poor Safety Awareness Stair Climbing Assessment Comments Stair Climbing Comments refused stair climbing M5 PT-IP Objective Assessments Start: 09/11/20 14:33 Freq: NEEDED Status: Active Protocol: Document 09/11/20 13:48 AB (Rec: 09/11/20 14:45 AB [id number]) Orientation Orientation/Cognition Level of Alertness Alert Orientation Name,Age,Birthday,Month,Date, Year,Day of Week,Place, Situation Language Function Ability No Deficits Noted Safety Awareness Understands Safety Issues Memory Description No Deficits Noted Gross Range of Motion Lower Extremity ROM Assessment Within Functional Limits Strength Lower Extremity Strength Assessment Within Functional Limits Coordination Assessment Gross Coordination Gross Coordination WNL Sensation Assessment Sensation Gross Sensation WNL Muscle Tone Muscle Tone WNL Yes M6 PT-IP Treatment Start: 09/11/20 14:33 Freq: NEEDED Status: Active Protocol: Document 09/13/20 08:54 AB (Rec: 09/13/20 11:50 AB [id number]) Physical Therapy Treatment Education Education Provided Safety M7 PT-IP Assessment and Plan Start: 09/11/20 14:33 Freq: NEEDED Status: Active Protocol: Document 09/13/20 08:54 AB (Rec: 09/13/20 11:50 AB [id number]) PT Summary Assessment and Plan Potential Rehabilitation Potential Fair Summary Impairments Pain,ROM,Strength,Balance, Sensation,Cognition,Bed Mobility,Transfers,Gait, Activity Tolerance Progress Towards Goals Slow Progress due to Pain Assessment Summary pt requiring SBA to occasional CGA with mobility using FWW. pt plans to go home with her family to assist her. pt may go home when medically stable. Goals Bed Mobility Goal Independent Transfer Goal Independent,Front Wheeled Walker Gait Goal Independent,Front Wheel Walker Gait Distance 250 Other Goals improve ambulation without AD 100 ft SBA up/down 5 steps B rails SBA Days to Meet Goals 5 Frequency of Treatment Frequency Of Treatment Twice a Day Treatment Plan Physical Therapy Treatment Plan Bed Mobility Training,Transfer Training,Gait Training, Therapeutic Exercise,Balance Retraining,Post Op Education, Discharge Planning,Hot or Cold Pack,Neuromuscular Re-ed, Coordination Retraining,Manual Therapy Other Recommendations and Next Treatment ambulation, stair climbing Focus Recommendations To Nursing Amount of Assist Needed 1 Person Assist Discharge Recommendations PT Discharge Recommendations Home with Assistance Transportation Needs at Discharge Private Vehicle
--- NOTE | 2020-09-13 12:04 | OT.IP.TRT ---
Current Diagnoses Intervertebral disc disorders with radiculopathy, lumbar region (09/12/20) Other specified postprocedural states (09/12/20) Surgery Performed Operation Date: 09/11/20 07:45 Actual Procedures p L4-5 redo left discectomy & instrumented fusion w/bone graft(Left) - Gilberto Austin MD Occupational Therapy Treatment Note M2 OT-IP Current Condition Start: 09/11/20 17:01 Freq: Status: Active Protocol: Document 09/11/20 17:01 CGR (Rec: 09/11/20 17:18 CGR [id number]) Occupational Therapy Current Condition Current Condition Evaluation Date 09/11/20 Treatment Diagnosis L4-5 TLIF revision Diagnosis Onset Date 09/10/20 Post Operative Precautions Lumbar Precautions Log Roll,No Twisting,Limit Bending,Lifting Restriction of 10 lbs,Gait Belt above Incisional Area M3 OT- IP Subjective and Pain Start: 09/11/20 17:01 Freq: Status: Active Protocol: Document 09/13/20 12:04 [facility] (Rec: 09/13/20 14:13 [facility] [id number]) OT- Subjective Occupational Therapy Visit Type Type Treatment Note Visit Start Time 11:32 Visit Stop Time 12:04 Total Visit Minutes 32 Occupational Therapy Visit Comments Patient Comments Pt not wanting to shower initially and then agreed to try to shower , I will just get it over with. Patient/Caregiver Goals To go home. OT Pain Assessment Pain When Pain Assessed During Mobility Pain Present Pain Present Pain Reported Location lower back Intensity 8 Scale Used Numeric (0 - 10) M4 OT- IP ADL's Start: 09/11/20 17:01 Freq: Status: Active Protocol: Document 09/13/20 12:04 [facility] (Rec: 09/13/20 14:13 [facility] [id number]) OT [id number] Comments OT Self-Feeding Comments Not meal time. OT ADL-Grooming Comments OT Grooming Comments Not performed. OT ADL-Oral Care Comments Oral Care Comments Not performed. OT ADL-Dressing General Eval Lower Body Dressing Ability Moderate Assistance Areas Needing Assistance Socks Comments OT Dressing Comments Pt able to use her feet to take the socks off and then needing assist to wes socks. Pt not wanting to use LB dressing equipment at this time. OT ADL-Toileting General Evaluation Toileting Ability Standby Assistance OT ADL-Bathing Bathing Type Bathing Type Shower General Evaluation Bathing Ability Minimal Assistance Areas Needing Assistance Wash/Dry Back,Wash/Dry Lower Extremities Comments OT Bathing Comments Pt able to sit for most of the shower and needing assist to wash dry her back and feet. Pt states her can assist her at home. M5 OT- IP IADL's Start: 09/11/20 17:01 Freq: Status: Active Protocol: Document 09/11/20 17:01 [facility] (Rec: 09/11/20 17:18 CGR [email or web address]) OT-Instrumental Activities of Daily Living Deficits IADL Deficits Identified No Deficits Home Safety Awareness Awareness of Need for Assistance at Home Good Awareness Ability to Problem Solve Emergency Able to Problem Solve Situations Medication Management Medication Management No Deficits Identified Money Management Money Management No Deficits Identified Meal Preparation Meal Preparation No Deficits Identified Dental Office Manager Dental Office Manager No Deficits Identified Driving Driving Comments Pt understands that she should not drive till approved by MD . M6 OT- IP Functional Cognition Start: 09/11/20 17:01 Freq: Status: Active Protocol: Document 09/13/20 12:04 [facility] (Rec: 09/13/20 14:13 [facility] [id number]) Cognitive Factors Limiting Selfcare Function Cognitive Comments Cognitive Assessment Comments Pt needing encourgement and increased time to complete tasks. M7 OT- IP Mobility and Balance Start: 09/11/20 17:01 Freq: Status: Active Protocol: Document 09/13/20 12:04 [facility] (Rec: 09/13/20 14:13 [facility] [id number]) OT-Transfer Assessment Sit to and From Stand Sit to and from Stand Contact Guard Assistance Transfers Transfer Ability Standby Assistance Technique Transfer Destination Chair,Shower Stall,Toilet Transfer Technique Stand Step Pivot Devices Transfer Assistive Devices Gait Belt,Front Wheeled Walker Comments Mobility Comments CGA while stepping over the threshold of the shower with FWW. OT- Gait Assessment Gait Gait Assistance Required: Standby Assistance Assistive Devices Assistive Device Gait Belt,Front Wheeled Walker OT- Balance Assessment Sitting Balance and Reactions Static Sitting Balance Ability Normal Dynamic Sitting Balance Ability Good Standing Balance and Reactions Static Standing Balance Ability Fair M8 OT- IP Objective Assessments Start: 09/11/20 17:01 Freq: Status: Active Protocol: Document 09/11/20 17:01 [facility] (Rec: 09/11/20 17:18 CGR [id number]) OT Gross Range of Motion Upper Extremity Range of Motion Assessment Within Functional Limits OT Strength Upper Extremity Strength Assessment Within Functional Limits Comments Strength Comments grossly 4+/5 OT- Coordination Assessment Upper Extremity Finger to Nose Test Within Functional Limits Finger Tapping Test Within Functional Limits OT-Muscle Tone Assessment Muscle Tone WNL No OT Sensation Assessment Edema Edema Absent M9 OT- IP Assessment and Plan Start: 09/11/20 17:01 Freq: Status: Active Protocol: Document 09/13/20 12:04 [facility] (Rec: 09/13/20 14:13 [facility] [id number]) OT Summary Assessment and Plan Potential Rehabilitation Potential Good Analytic Complexity at Evaluation Low Summary OT Impairments Pain,Balance,Functional Mobility,Grooming,Dressing, Toileting,Bathing,Toilet Transfers,Activity Tolerance Progress Towards Goals Progressing Toward Goals Assessment Summary Pt able to tolerate shower today. Pt easily gets overwhelmed and needing increased time to stand, and complete tasks. Pt feels that she should be doing better and frustrated that she will to have assist at home. Pt to go home with assist when medically stable. Goals Grooming Goal Independent Dressing Goal Independent Toileting Goal Independent Bathing Goal Independent Toilet Transfer Goal Independent Shower Transfer Goal Independent Days to Meet Goals 2 Frequency of Treatment Frequency Of Treatment Once a Day Treatment Plan OT Treatment Plan ADL Training,Functional Mobility,Patient/Family Education,Discharge Planning Other Treatment Recommendations and Next LB dressing. Treatment Focus Discharge Recommendations OT Discharge Recommendations Home with Assistance Transportation Needs at Discharge Private Vehicle
[2020-09-13 12:20] VITALS: BP 126/73; PULSE 99; RESP 16; TEMP 36.8; O2SAT 98
--- NOTE | 2020-09-13 13:43 | PC.NURSE ---
Addendum entered by Hamida Honeycutt R.N. 09/13/20 14:07: Patient is walking with physical therapy and doing well. She denies pain. Original Note: Patient is comfortable in bed, medicated with oxycodone at 11am. She is lying on her r.side. Resting comfortably. Dressing changed earlier.
--- NOTE | 2020-09-13 13:52 | PT.IPTN ---
Current Diagnoses Intervertebral disc disorders with radiculopathy, lumbar region (09/12/20) Other specified postprocedural states (09/12/20) Surgery Performed Operation Date: 09/11/20 07:45 Actual Procedures p L4-5 redo left discectomy & instrumented fusion w/bone graft(Left) - Gilberto Austin MD Physical Therapy Treatment Note M2 PT-IP Current Condition Start: 09/11/20 14:33 Freq: NEEDED Status: Active Protocol: Document 09/11/20 13:48 AB (Rec: 09/11/20 14:45 AB [email or web address]) Physical Therapy Current Condition Current Condition Evaluation Date 09/11/20 Treatment Diagnosis s/p L4-5 TLIF; difficulty in walking Onset Date 09/11/20 Precautions Lumbar Precautions Log Roll,No Twisting,Limit Bending,Lifting Restriction of 10 lbs,Gait Belt above Incisional Area M3 PT-IP Subjective Start: 09/11/20 14:33 Freq: NEEDED Status: Active Protocol: Document 09/13/20 13:52 AB (Rec: 09/13/20 14:29 AB [email or web address]) Subjective Physical Therapy Visit Type Type Treatment Note Visit Start Time 13:52 Visit Stop Time 14:19 Total Visit Minutes 27 Number of TIMEKEEPER SUPERVISOR Visits 0 Physical Therapy Visit Comments Patient Comments pt requested to use the toilet and stated that she will see how she feels afterwards Therapy Pain Assessment Pain When Pain Assessed At Rest Pain Present Pain Present Pain Reported Location lower back Intensity 4 Scale Used Numeric (0 - 10) Pain Management Techniques Apply Cold,Modification of Treatment,Re-positioning, Timing of Activity with Medications M4 PT-IP Mobility and Gait Start: 09/11/20 14:33 Freq: NEEDED Status: Active Protocol: Document 09/13/20 13:52 AB (Rec: 09/13/20 14:29 AB [email or web address]) PT-Bed Mobility Assessment Supine to Sit Supine to Sit Standby Assistance Sit to Supine Sit to Supine Standby Assistance,Head of Bed Elevated,Bedrails Scooting Scooting to Edge of Bed Standby Assistance PT-Transfer Assessment Sit to and From Stand Sit to and from Stand Standby Assistance Equipment Transfer Assistive Device Gait Belt,Front Wheeled Walker Orthotic/Prosthetic Devices or Brace: No Transfers Transfer Destination Toilet Transfer Technique ambulated using FWW Transfer Ability Level of Assist Standby Assistance Comments Mobility Comments completed supine to sit SBA. pt elevated HOB up and used bed rail to assist with bed mobility. pt requires increase time to complete tasks with increase rest breaks in between. completed sit to stand x 2 attempts SBA and ambulated to the toilet SBA using FWW. completed sit to stand from the toilet using grab bar SBA and ambulated to the sink using FWW SBA. presents with decrease turner and decrease step length. pt was able to maintain standing SBA while completing handwashing. pt agreed to walk in the hallway and completed ambulation using FWW 200 ft using FWW SBA. pt requested to go back to bed afterwards and completed sit to supine SBA with HOB elevated and use of bed rail. positioned in bed. call light and table placed within reach. Gait Assessment Gait Gait Assistance Required: Standby Assistance Distance (Feet) 200 Able to Maintain Weight Bearing Status Yes During Gait Assistive Devices Assistive Device Gait Belt,Front Wheeled Walker Orthotic/Prosthetic Devices or Brace: No Gait Deviations General Gait Pattern Decreased Stride Length, Decreased Feet Clearance Factors Limiting Gait Function Factors Limiting Gait Function Decreased Activity Tolerance, Decreased Strength,Limited Range of Motion,Pain Comments Gait Comments pt presents with slow turner during ambulation. M5 PT-IP Objective Assessments Start: 09/11/20 14:33 Freq: NEEDED Status: Active Protocol: Document 09/11/20 13:48 AB (Rec: 09/11/20 14:45 AB [email or web address]) Orientation Orientation/Cognition Level of Alertness Alert Orientation Name,Age,Birthday,Month,Date, Year,Day of Week,Place, Situation Language Function Ability No Deficits Noted Safety Awareness Understands Safety Issues Memory Description No Deficits Noted Gross Range of Motion Lower Extremity ROM Assessment Within Functional Limits Strength Lower Extremity Strength Assessment Within Functional Limits Coordination Assessment Gross Coordination Gross Coordination WNL Sensation Assessment Sensation Gross Sensation WNL Muscle Tone Muscle Tone WNL Yes M6 PT-IP Treatment Start: 09/11/20 14:33 Freq: NEEDED Status: Active Protocol: Document 09/13/20 13:52 AB (Rec: 09/13/20 14:29 AB [email or web address]) Physical Therapy Treatment Education Education Provided Safety M7 PT-IP Assessment and Plan Start: 09/11/20 14:33 Freq: NEEDED Status: Active Protocol: Document 09/13/20 13:52 AB (Rec: 09/13/20 14:29 AB [id number]) PT Summary Assessment and Plan Potential Rehabilitation Potential Good Summary Impairments Pain,ROM,Strength,Balance, Coordination,Sensation,Tone, Cognition,Bed Mobility, Transfers,Gait,Activity Tolerance Progress Towards Goals Slow Progress due to Pain Assessment Summary pt progressing slowly with mobility and continues to c/o pain affecting function. pt plans to go home with family to assist her and may go home when medically stable. Goals Bed Mobility Goal Independent Transfer Goal Independent,Front Wheeled Walker Gait Goal Independent,Front Wheel Walker Gait Distance 250 Other Goals improve ambulation without AD 100 ft SBA up/down 5 steps B rails SBA Days to Meet Goals 5 Frequency of Treatment Frequency Of Treatment Twice a Day Treatment Plan Physical Therapy Treatment Plan Bed Mobility Training,Transfer Training,Gait Training, Therapeutic Exercise,Balance Retraining,Post Op Education, Discharge Planning,Hot or Cold Pack,Neuromuscular Re-ed, Coordination Retraining,Manual Therapy Other Recommendations and Next Treatment ambulation, stair climbing Focus Recommendations To Nursing Amount of Assist Needed Standby Assistance Discharge Recommendations PT Discharge Recommendations Home with Assistance Transportation Needs at Discharge Private Vehicle
[2020-09-13 15:32] VITALS: BP 103/67; PULSE 75; RESP 18; TEMP 36.2; O2SAT 98
[2020-09-13 19:45] VITALS: BP 122/67; PULSE 88; RESP 18; TEMP 36.3
[2020-09-13] MEDS: hydrOXYzine pamoate 25 MG CAPSULE PO (20:59)
[2020-09-13] MEDS: SENNOSIDES 8.6 MG TABLET 17.2 MG PO (20:59)
[2020-09-13] MEDS: diazePAM 5 MG TABLET PO (22:19)
[2020-09-14 01:10] VITALS: BP 100/57; PULSE 84; RESP 18; TEMP 37.2; O2SAT 98
[2020-09-14] MEDS: OXYCODONE/ACETAMINOPHEN 5/325 TABLET 2 TAB PO ×2 (03:36→08:05)
--- NOTE | 2020-09-14 07:16 | PM.DS.1 ---
History of Present Illness History of Present Illness Date Patient Seen: 09/14/20 Time Patient Seen: 07:16 Chief complaint: L Translaminar Interbody Fusion/Laminotomy *OPB* Narrative: 54-year-old female with a history of a lumbar diskectomy in the past. She had recurrent diskectomy at L4-5 with severe left leg pain. She failed conservative management and came for surgery. Discharge Providers Provider Date of admission: 09/12/20 14:59 Discharge Date: 09/14/20 Primary care physician: LION Chatman Consults: 09/11/20 11:59 Consult to Occupational Therapy Evaluate & Treat Comment: Physician Instructions: Evaluate and treat Consult to Physical Therapy Evaluate & Treat Comment: Physician Instructions: Evaluate and Treat Discharge provider: Gilberto Austin MD Summary Hospital Course Discharge Diagnosis: Recurrent lumbar disc herniation with radiculopathy History of lumbar diskectomy Hospital Course: She is brought to the operating room on 09/11/2020 where she underwent a revision diskectomy and instrumented fusion TLIF at L4-5. Postoperatively she had difficulty with pain control but this was gradually brought around. She was slowly mobilizing up with physical therapy and independent by date of discharge. Status at Discharge Cognitive/behavioral status at discharge: oriented Functional status at discharge: uses cane/walker Overall status at discharge: patient is progressing back to baseline Exam Vital Signs (past 8 hours): - 09/14/20 01:10 Temperature 99.0 F Pulse Rate 84 Respiratory Rate 18 Blood Pressure 100/57 L Pulse Oximetry 98 Oxygen Delivery Method Room Air Oxygen Flow Rate 0 Const Orientation: alert and oriented x3 Back/Spine/Pelvis Other: CDI. 5/5 motor both lower extremities. Objective Labs Result Diagrams: 09/12/20 06:42 Discharge Assessment & Plan Assessment and Plan Assessment: Status post lumbar fusion Plan of Treatment: Discharge home Discharge Plan Discharge Plan Patient Disposition: Home Provider Discharge Comment: Follow-up 1.5 weeks Discharge orders & Medications Prescriptions: New diazepam 5 mg Tablet 5 mg PO Q6HR PRN (Reason: Spasms) Qty: 15 RF: 0 docusate sodium [DOK] 100 mg Capsule 100 mg PO BID PRN (Reason: constipation) Qty: 30 RF: 0 oxycodone-acetaminophen 5-325 mg Tablet See Rx Instructions .ROUTE .COMPLEX PRN (Reason: Pain, Moderate (4-6)) Qty: 40 RF: 0 Continued fexofenadine [Marysol Allergy] 180 mg Tablet 180 mg PO DAILY RF: 0 omeprazole 20 mg Tablet,Delayed Release (Dr/Ec) 20 mg PO BID RF: 0 Follow up/Referrals: Zay Balderas ARNP [Primary Care Provider] - Discharge Data Primary Care Provider: Zay Balderas Attending Provider: Gilberto Austin VTE Deep Vein Thrombosis/Pulmonary Embolism Present on Admission: No
--- NOTE | 2020-09-14 07:21 | PM.PNPO.1 ---
Subjective Subjective Date Patient Seen: 09/14/20 Time Patient Seen: 07:21 Interval history: She is doing better. Still with spasms but pain under much better control. Exam Vital Signs (past 8 hours): - 09/14/20 01:10 Temperature 99.0 F Pulse Rate 84 Respiratory Rate 18 Blood Pressure 100/57 L Pulse Oximetry 98 Oxygen Delivery Method Room Air Oxygen Flow Rate 0 Const Orientation: alert and oriented x3 Back/Spine/Pelvis Other: CDI. 5/5 motor both lower extremities. Objective Labs Result Diagrams: 09/12/20 06:42 Assessment & Plan Post-op Postoperative Procedures: Procedures Operation Date: 09/11/20 07:45 Actual Procedures Side Surgeon p L4-5 redo left discectomy & instrumented fusion w/bone graft Left Gilberto Austin MD She is doing well. Discharge home Quality VTE Deep Vein Thrombosis/Pulmonary Embolism Present on Admission: No
[2020-09-14 07:24] VITALS: BP 125/75; PULSE 77; RESP 14; TEMP 36.8; O2SAT 100
[2020-09-14] MEDS: DOCUSATE 100 MG CAPSULE PO (08:05)
[2020-09-14] MEDS: LORATADINE 10 MG TABLET PO (08:06)
[2020-09-14] MEDS: PANTOPRAZOLE 20 MG TABLET PO (08:06)
--- NOTE | 2020-09-14 08:56 | PT.IPTN ---
Current Diagnoses Intervertebral disc disorders with radiculopathy, lumbar region (09/12/20) Other specified postprocedural states (09/12/20) Surgery Performed Operation Date: 09/11/20 07:45 Actual Procedures p L4-5 redo left discectomy & instrumented fusion w/bone graft(Left) - Gilberto Austin MD Physical Therapy Treatment Note M2 PT-IP Current Condition Start: 09/11/20 14:33 Freq: NEEDED Status: Active Protocol: Document 09/11/20 13:48 AB (Rec: 09/11/20 14:45 AB [email or web address]) Physical Therapy Current Condition Current Condition Evaluation Date 09/11/20 Treatment Diagnosis s/p L4-5 TLIF; difficulty in walking Onset Date 09/11/20 Precautions Lumbar Precautions Log Roll,No Twisting,Limit Bending,Lifting Restriction of 10 lbs,Gait Belt above Incisional Area M3 PT-IP Subjective Start: 09/11/20 14:33 Freq: NEEDED Status: Active Protocol: Document 09/14/20 08:56 AB (Rec: 09/14/20 11:49 AB [id number]) Subjective Physical Therapy Visit Type Type Treatment Note Visit Start Time 08:56 Visit Stop Time 09:11 Total Visit Minutes 15 Number of CENTRAL SUPPLY ASSISTANT Visits 0 Physical Therapy Visit Comments Patient Comments pt is agreeable to do PT Therapy Pain Assessment Pain When Pain Assessed At Rest Pain Present Pain Present Pain Reported Location lower back Intensity 4 Scale Used Numeric (0 - 10) Pain Management Techniques Modification of Treatment,Re- positioning,Timing of Activity with Medications M4 PT-IP Mobility and Gait Start: 09/11/20 14:33 Freq: NEEDED Status: Active Protocol: Document 09/14/20 08:56 AB (Rec: 09/14/20 11:49 AB [id number]) PT-Transfer Assessment Sit to and From Stand Sit to and from Stand Standby Assistance,Contact Guard Assistance,1 Person Assistance,Use of Upper Extremities Equipment Transfer Assistive Device Gait Belt,Front Wheeled Walker Orthotic/Prosthetic Devices or Brace: No Transfers Transfer Destination Toilet Transfer Technique ambulated using FWW Transfer Ability Level of Assist Standby Assistance,1 Person Assistance,Use of Upper Extremities Comments Mobility Comments completed sit to stand SBA. pt required 2 attempts to complete and increase time to complete task. pt ambulated using FWW 250 ft SBA. completed up/down steps using bilateral rails SBA. requested to use the toilet and ambulated to the toilet using FWW SBA. pt stated that she has to use the toilet for awhile. informed pt to call for assistance when ready. call light positioned next to pt. informed NAC that pt is using the toilet. pt refused caregiver training and stated that spouse will not remember on how to assist her. pt also is only requiring SBA with mobility and had previous back surgeries and is aware of safety and precautions. Gait Assessment Gait Gait Assistance Required: Standby Assistance Distance (Feet) 250 Able to Maintain Weight Bearing Status Yes During Gait Assistive Devices Assistive Device Gait Belt,Front Wheeled Walker Orthotic/Prosthetic Devices or Brace: No Gait Deviations General Gait Pattern Antalgic,Decreased Stride Length,Decreased Feet Clearance Factors Limiting Gait Function Factors Limiting Gait Function Decreased Activity Tolerance, Decreased Strength,Limited Range of Motion,Pain,Poor Balance,Poor Safety Awareness Comments Gait Comments pls refer to mobility section for details Stair Climbing Assessment Evaluation Level of Assist On Stairs Standby Assistance Devices Stair Climbing Assistive Devices Left Railing,Right Railing Technique/Endurance Stair Climbing Direction Ascend and Descend Stair Climbing Technique Step to Step Number of Steps Climbed 3 Stair Climbing Set # Repetitions (reps) 1 M5 PT-IP Objective Assessments Start: 09/11/20 14:33 Freq: NEEDED Status: Active Protocol: Document 09/11/20 13:48 AB (Rec: 09/11/20 14:45 AB [id number]) Orientation Orientation/Cognition Level of Alertness Alert Orientation Name,Age,Birthday,Month,Date, Year,Day of Week,Place, Situation Language Function Ability No Deficits Noted Safety Awareness Understands Safety Issues Memory Description No Deficits Noted Gross Range of Motion Lower Extremity ROM Assessment Within Functional Limits Strength Lower Extremity Strength Assessment Within Functional Limits Coordination Assessment Gross Coordination Gross Coordination WNL Sensation Assessment Sensation Gross Sensation WNL Muscle Tone Muscle Tone WNL Yes M6 PT-IP Treatment Start: 09/11/20 14:33 Freq: NEEDED Status: Active Protocol: Document 09/14/20 08:56 AB (Rec: 09/14/20 11:49 AB [id number]) Physical Therapy Treatment Education Education Provided Safety M7 PT-IP Assessment and Plan Start: 09/11/20 14:33 Freq: NEEDED Status: Active Protocol: Document 09/14/20 08:56 AB (Rec: 09/14/20 11:49 AB [id number]) PT Summary Assessment and Plan Potential Rehabilitation Potential Good Summary Impairments Pain,ROM,Strength,Balance, Coordination,Sensation,Tone, Cognition,Bed Mobility, Transfers,Gait,Activity Tolerance Progress Towards Goals Slow Progress due to Pain Assessment Summary pt requiring SBA with occasional CGA with mobility. pt plans to go home today with family to assist her. pt may go home when medically stable . Goals Bed Mobility Goal Independent Transfer Goal Independent,Front Wheeled Walker Gait Goal Independent,Front Wheel Walker Gait Distance 250 Other Goals improve ambulation without AD 100 ft SBA up/down 5 steps B rails SBA Days to Meet Goals 5 Frequency of Treatment Frequency Of Treatment Twice a Day Treatment Plan Physical Therapy Treatment Plan Bed Mobility Training,Transfer Training,Gait Training, Therapeutic Exercise,Balance Retraining,Post Op Education, Discharge Planning,Hot or Cold Pack,Neuromuscular Re-ed, Coordination Retraining,Manual Therapy Discharge Recommendations PT Discharge Recommendations Home with Assistance Transportation Needs at Discharge Private Vehicle
--- NOTE | 2020-09-14 10:52 | OT.IP.TRT ---
Current Diagnoses Intervertebral disc disorders with radiculopathy, lumbar region (09/12/20) Other specified postprocedural states (09/12/20) Surgery Performed Operation Date: 09/11/20 07:45 Actual Procedures p L4-5 redo left discectomy & instrumented fusion w/bone graft(Left) - Gilberto Austin MD Occupational Therapy Treatment Note M2 OT-IP Current Condition Start: 09/11/20 17:01 Freq: Status: Active Protocol: Document 09/11/20 17:01 CGR (Rec: 09/11/20 17:18 CGR [id number]) Occupational Therapy Current Condition Current Condition Evaluation Date 09/11/20 Treatment Diagnosis L4-5 TLIF revision Diagnosis Onset Date 09/10/20 Post Operative Precautions Lumbar Precautions Log Roll,No Twisting,Limit Bending,Lifting Restriction of 10 lbs,Gait Belt above Incisional Area M3 OT- IP Subjective and Pain Start: 09/11/20 17:01 Freq: Status: Active Protocol: Document 09/14/20 13:52 CGR (Rec: 09/14/20 13:59 CGR [id number]) OT- Subjective Occupational Therapy Visit Type Type Progress Note Visit Start Time 10:14 Visit Stop Time 10:52 Total Visit Minutes 38 Notes Pt initially not wanting to perform LB dressing training but agreeable after further conversation. OT Pain Assessment Pain When Pain Assessed At Rest Pain Present Pain Present Pain Reported Location lower back Scale Used did not rate Management Techniques Distraction,Modification of Treatment,Re-positioning M4 OT- IP ADL's Start: 09/11/20 17:01 Freq: Status: Active Protocol: Document 09/14/20 13:52 CGR (Rec: 09/14/20 13:59 CGR [id number]) OT [id number] Comments OT Self-Feeding Comments Not meal time OT ADL-Grooming General Evaluation Grooming Ability Maximum Assistance Areas Needing Assistance Combing/Brushing Hair Comments OT Grooming Comments Assisted pt with brushing through knotted hair. OT ADL-Oral Care Comments Oral Care Comments Not performed OT ADL-Dressing General Eval Upper Body Dressing Ability Independent Lower Body Dressing Ability Standby Assistance Areas Needing Assistance Retrieving/Set-up of Clothing, Pants/Shorts,Socks Assistive Devices Dressing Assistive Devices Supervisor Rod Placing,Sock Aid Comments OT Dressing Comments Pt states and performs LB dressing without AD by bringing up foot to knee. OT ADL-Toileting General Evaluation Toileting Ability Independent Comments OT Toileting Comments Pt had BM seated on toilet OT ADL-Bathing Comments OT Bathing Comments Not performed on this date M5 OT- IP IADL's Start: 09/11/20 17:01 Freq: Status: Active Protocol: Document 09/11/20 17:01 CGR (Rec: 09/11/20 17:18 CGR [email or web address]) OT-Instrumental Activities of Daily Living Deficits IADL Deficits Identified No Deficits Home Safety Awareness Awareness of Need for Assistance at Home Good Awareness Ability to Problem Solve Emergency Able to Problem Solve Situations Medication Management Medication Management No Deficits Identified Money Management Money Management No Deficits Identified Meal Preparation Meal Preparation No Deficits Identified Pensions Retirement Plan Specialist Pensions Retirement Plan Specialist No Deficits Identified Driving Driving Comments Pt understands that she should not drive till approved by . M6 OT- IP Functional Cognition Start: 09/11/20 17:01 Freq: Status: Active Protocol: Document 09/13/20 12:04 [facility] (Rec: 09/13/20 14:13 [facility] [id number]) Cognitive Factors Limiting Selfcare Function Cognitive Comments Cognitive Assessment Comments Pt needing encourgement and increased time to complete tasks. M7 OT- IP Mobility and Balance Start: 09/11/20 17:01 Freq: Status: Active Protocol: Document 09/14/20 13:52 CGR (Rec: 09/14/20 13:59 CGR [id number]) OT- Bed Mobility Assessment Rolling Type of Rolling Roll to Right Level of Assistance Standby Assistance Supine to Sit Supine to Sit Assist Standby Assistance Scooting Scooting to Edge of Bed Standby Assistance OT-Transfer Assessment Sit to and From Stand Sit to and from Stand Standby Assistance Transfers Transfer Ability Standby Assistance Technique Transfer Destination Bed,Chair,Toilet Transfer Technique Stand Step Pivot Devices Transfer Assistive Devices Gait Belt,Front Wheeled Walker OT- Balance Assessment Sitting Balance and Reactions Static Sitting Balance Ability Normal Dynamic Sitting Balance Ability Good M8 OT- IP Objective Assessments Start: 09/11/20 17:01 Freq: Status: Active Protocol: Document 09/11/20 17:01 CGR (Rec: 09/11/20 17:18 CGR [id number]) OT Gross Range of Motion Upper Extremity Range of Motion Assessment Within Functional Limits OT Strength Upper Extremity Strength Assessment Within Functional Limits Comments Strength Comments grossly 4+/5 OT- Coordination Assessment Upper Extremity Finger to Nose Test Within Functional Limits Finger Tapping Test Within Functional Limits OT-Muscle Tone Assessment Muscle Tone WNL No OT Sensation Assessment Edema Edema Absent M9 OT- IP Assessment and Plan Start: 09/11/20 17:01 Freq: Status: Active Protocol: Document 09/14/20 13:52 CGR (Rec: 09/14/20 13:59 CGR [id number]) OT Summary Assessment and Plan Potential Rehabilitation Potential Good Analytic Complexity at Evaluation Low Summary OT Impairments Pain,Balance,Functional Mobility,Grooming,Dressing, Toileting,Bathing,Toilet Transfers,Activity Tolerance Progress Towards Goals Progressing Toward Goals Assessment Summary Pt agreeable to learning LB dressing. Pt ended up performing LB dressing without AD but states that she can for see some situations where she would benefit from having the equipment. Pt is planned for d/c today. Goals Grooming Goal Independent Dressing Goal Independent Toileting Goal Independent Bathing Goal Independent Toilet Transfer Goal Independent Shower Transfer Goal Independent Days to Meet Goals 2 Frequency of Treatment Frequency Of Treatment Once a Day Treatment Plan OT Treatment Plan ADL Training,Functional Mobility,Patient/Family Education,Discharge Planning Other Treatment Recommendations and Next LB dressing. Treatment Focus Discharge Recommendations OT Discharge Recommendations Home with Assistance Transportation Needs at Discharge Private Vehicle
--- NOTE | 2020-09-14 12:46 | CM.DPNOTE ---
DC Note DC order in today, patient returning home w/assist from her family, as expected. 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
--- NOTE | 2020-09-14 13:13 | PC.NURSE ---
DISCHARGE: LATE ENTRY: PATIENT CLEARED FOR DISCHARGE BY PHYSICAL THERAPY AND BY OT. CLEAR PLASTIC BACKING OF COVERSITE DRSG ROLLING OFF, BUT INCISIONS COMPLETELY COVERED AND DRSG CLEAN AND INTACT. PATIENT HAS ERYTHEMA IN THE SHAPE OF THE BORDER OF DRSG AND C/O ITCHING. NO BLISTERS. INCISIONS WELL APPROXIMATED WITH SUTURES INTACT, NO ERYTHEMA TO INCISIONS. LEFT YELLOW VASELINE GAUZE STRIPS IN PLACE. APPLIED 4X4'S X4 TO COVER INCISIONS AND LARGE OPSITE/TEGADERM DRSG OVER. INSTRUCTED PATIENT TO LEAVE DRSG IN PLACE, BUT CALL THE ORTHOPEDIC OFFICE IF ITCHING CONTINUES OR WORSENS. REVIEWED ALL DC HOME PAPERWORK WITH SPOUSE AND PATIENT. THEY CONFIRM UNDERSTANDING. SCRIPTS ELECTRONICALLY SENT BY ALISSA ROLLINS. PATIENT ESCORTED BY LPN MEDICAL ASSISTANT BY WITH SPOUSE PRESENT TO VEHICLE WITHOUT S/SX'S OF DISTRESS.
== END 2020-09-14 11:35 | disposition home or self-care (01) ==
LOC: OR 09-19 07:42 → AC 09-19 07:43
PROVIDERS: Admitting Provider Orthopaedic Surgery; PCP Nurse Practitioner Family; Referring Provider Nurse Practitioner Family; Visit Provider Orthopaedic Surgery
PROC: (CPT 22633; principal; 2020-09-11 07:45)
DX: M51.16 Intervertebral disc disorders with radiculopathy, lumbar region (principal); Z98.890 Other specified postprocedural states; K21.9 Gastro-esophageal reflux disease without esophagitis; E66.9 Obesity, unspecified
CPT/HCPCS: 22633; 20939; 22840; 22853; 63042; 72100; 76000; 85014; 85018; 97116; 97162; 97165; 97530; 97535; C1776; G0378; J0330; J1100; J1170; J2250; J2405; J2704; J3010; J8501

== ENCOUNTER → 2023-06-02 07:49 | Outpatient (CLI) | payer OTHER, SELFPAY ==
[2020-09-11 12:37] VITALS: BMI 39.9
--- NOTE | 2023-06-02 | DI.MG.S_ITS ---
BILATERAL DIGITAL SCREENING MAMMOGRAM 3D/2D WITH CAD: 06/02/2023 CLINICAL: Routine screening. Comparison is made to exams dated: 08/30/2019 mammogram, 05/19/2018 mammogram, and 02/04/2017 mammogram - [facility]. Both breasts are heterogeneously dense, which may obscure small masses (category c / 51-75% glandular tissue). Current study was also evaluated with a Computer Aided Detection (CAD) system. No significant masses, calcifications, or other findings are seen in either breast. There has been no significant interval change. IMPRESSION: NEGATIVE There is no mammographic evidence of malignancy. A 1 year screening mammogram is recommended. Based on the Tyrer Cuzick model (a risk assessment model) the patient's lifetime risk is 12.7% and her 10 year risk is 3.9%. According to the ACR, ACS, and NCCN guidelines, an annual breast MRI exam along with mammogram is recommended if the patient's lifetime risk is 20% or greater. This exam was interpreted at Station ID: [id number]. NOTE: For mammograms, a report in lay terms will be sent to the patient. Approximately 15% of breast malignancies will not be visualized mammographically. In the management of a palpable breast mass, a negative mammogram must not discourage biopsy of a clinically suspicious lesion. Electronically Signed By: Neo gaxiola/briana:06/02/2023 20:43:20 copy to: ARMIN BALDERAS, [facility], ph: [phone], fax: [phone] letter sent: Normal Exam ACR BI-RADS Category 1: Negative [id number]
== END ==
PROVIDERS: PCP Nurse Practitioner; Referring Provider Nurse Practitioner; Visit Provider Nurse Practitioner
DX: Z12.31 Encounter for screening mammogram for malignant neoplasm of breast (principal)
CPT/HCPCS: 77063; 77067